=== PATIENT | male | born 1955 | race Caucasian/White ===

== ENCOUNTER 2017-03-13 10:57 | Inpatient (IN) | payer MEDICARE, MEDICAID ==
[~2017-03-13] VITALS: Ht 182.9 cm; Wt 85.2 kg
[~2017-03-13 10:57] MED LIST: APIX5TAB3 PO; ASCO500C15 PO; ASPI-41 PO; CHOL10008 PO; CILO100T PO; DOXY-200 PO; GABA-532 PO; LACT10SO6 PO; LEVO500T89 PO; MULT-1179 PO; OMEP20CA10 PO; PROP10TA10 PO; SPIR25TA3 PO; ZIN220C PO
[2017-03-13] MEDS ORDERED: normal saline 1000ML IV soln IVB ONE (11:35)
[2017-03-13] MEDS ORDERED: naloxone 2mg/2ml inj IV ONE (11:35)
[2017-03-13 12:08] LABS: BASOPHILS # (AUTO) 0.1 X10'3 (0-0.2); BASOPHILS % (AUTO) 0.3 % (0-1); EOSINOPHILS # (AUTO) 0.3 X10'3 (0-0.9); EOSINOPHILS % (AUTO) 1.6 % (0-6); HEMOGLOBIN 11.2 g/dl (14.0-17.9); LYMPHOCYTES # (AUTO) 1.3 X10'3 (1.1-4.8); LYMPHOCYTES % (AUTO) 7.9 % (21-51); MEAN CORPUSCULAR HEMOGLOBIN 30.2 PG (27.0-31.0); MEAN CORPUSCULAR HGB CONC 33.1 % (33.0-36.5); MEAN CORPUSCULAR VOLUME 91.2 FL (78-98); MEAN PLATELET VOLUME 8.3 FL (7.4-10.4); MONOCYTES # (AUTO) 1.2 X10'3 (0-0.9); MONOCYTES % (AUTO) 7.1 % (2-12); NEUTROPHILS # (AUTO) 14.2 X10'3 (1.8-7.7); NEUTROPHILS % (AUTO) 83.1 % (42-75); PLATELET COUNT 173 X10'3 (140-440); RED BLOOD COUNT 3.72 X10'6 (4.70-6.10); RED CELL DISTRIBUTION WIDTH 18.1 % (11.5-14.5)
[2017-03-13] MEDS ORDERED: vancomycin inj 1,000 MG in normal saline 250ml IV soln 250 ML IV STA (12:17)
[2017-03-13 12:19] LABS: INR 1.3 INR; PARTIAL THROMBOPLASTIN TIME 25 SECONDS (22-32); PROTHROMBIN TIME 13.6 SECONDS (9.0-12.0)
[2017-03-13] MEDS ORDERED: piperacillin/tazo 3.375gm/50ml 50 ML IV ONE (12:20)
[2017-03-13 12:23] LABS: GLUCOSE, URINE NEGATIVE (Neg); KETONES,URINE 15 mg/dl (Neg); LEUKOCYTE ESTERASE ,URINE MODERATE (Neg); NITRITES, URINE NEGATIVE (Neg); OCCULT BLOOD,URINE LARGE (Neg); PROTEIN,URINE 100 mg/dl (Neg); UROBILINOGEN,URINE >=8.0 E.U/dL (0.2-1.0)
[2017-03-13 12:24] LABS: UA COLLECTION TYPE FOLEY CATH
[2017-03-13 12:25] LABS: ALANINE AMINOTRANSFERASE 52 U/L (12-78); ALBUMIN 1.8 G/DL (3.4-5.0); ALBUMIN/GLOBULIN RATIO 0.4 (1.1-1.5); ALKALINE PHOSPHATASE 112 IU/L (46-116); ANION GAP 13 (8-16); ASPARTATE AMINO TRANSFERASE 79 U/L (10-37); BILIRUBIN,TOTAL 4.1 MG/DL (0.1-1.0); BLOOD UREA NITROGEN 34 MG/DL (7-18); BUN/CREATININE RATIO 21.1 (5.4-32.0); CALCIUM 8.5 MG/DL (8.5-10.1); CHLORIDE 118 MMOL/L (99-107); CREATININE 1.61 MG/DL (0.60-1.10); GLUCOSE 113 MG/DL (70-104); POTASSIUM 3.9 MMOL/L (3.5-5.1); SODIUM 152 MMOL/L (135-145); TOTAL CARBON DIOXIDE 20.6 MMOL/L (24-32); TOTAL PROTEIN 6.8 G/DL (6.4-8.2); eGFR 44 ML/MIN
[2017-03-13 12:25] LABS: CLARITY,URINE SLIGHTLY CLOUDY (Clear)
[2017-03-13] MEDS ORDERED: vancomycin/NS 1 GM ADD-VANTAGE 250 ML X 1 DOSE IV ONE (12:25)
[2017-03-13 12:28] LABS: COLOR,URINE DARK YELLOW (Yellow)
[2017-03-13 12:31] LABS: BACTERIA,URINE 1+ /HPF (Neg); MUCUS STRANDS NONE SEEN /LPF (Neg); SQUAMOUS EPITHELIAL CELL,UR NONE SEEN /LPF (FEW); WBC,URINE 30-50 /HPF (0-4)
[2017-03-13 12:32] LABS: ETHANOL < 0.010 GM/DL (0.0-0.010); TROPONIN I 0.11 NG/ML (0.0-0.05)
[2017-03-13 12:34] LABS: URINE AMPHETAMINE SCREEN NEGATIVE (Neg); URINE BARBITUATE SCREEN NEGATIVE (Neg); URINE BENZODIAZEPINES SCREEN NEGATIVE (Neg); URINE CANNABINOID SCREEN NEGATIVE (Neg); URINE COCAINE SCREEN NEGATIVE (Neg); URINE METHADONE SCREEN NEGATIVE (Neg); URINE OPIATE SCREEN NEGATIVE (Neg); URINE PHENCYCLIDINE SCREEN NEGATIVE (Neg)
[2017-03-13] MEDS ORDERED: normal saline 1000ML IV soln IV ONE (12:50)
[2017-03-13] MEDS ORDERED: lactulose 20gm/30ml cup PO ONE ×2 (13:15→15:30)
[2017-03-13] MEDS ORDERED: ondansetron/PF 4mg/2ml inj IV PRN (15:30)
[2017-03-13] MEDS ORDERED: acetaminophen 325mg tablet PO PRN (15:30)
[2017-03-13] MEDS ORDERED: normal saline 1000ml 1,000 ML IV SCH (15:30)
[2017-03-13] MEDS ORDERED: magnesium hydroxide 30ml (MOM) UD suspension PO PRN (15:30)
[2017-03-13] MEDS ORDERED: mag hydrox/Alum hydrox/simeth 30ml oral suspension PO PRN (15:30)
[2017-03-13 16:23] LABS: ALBUMIN 1.5 G/DL (3.4-5.0); ANION GAP 12 (8-16); BLOOD UREA NITROGEN 35 MG/DL (7-18); BUN/CREATININE RATIO 21.6 (5.4-32.0); CALCIUM 7.8 MG/DL (8.5-10.1); CHLORIDE 121 MMOL/L (99-107); CREATININE 1.62 MG/DL (0.60-1.10); GLUCOSE 113 MG/DL (70-104); POTASSIUM 3.6 MMOL/L (3.5-5.1); SODIUM 154 MMOL/L (135-145); TOTAL CARBON DIOXIDE 21.2 MMOL/L (24-32); eGFR 43 ML/MIN
[2017-03-13] MEDS ORDERED: potassium Cl 20 mEq SR tablet PO PRN ×2 (17:35)
[2017-03-13] MEDS ORDERED: potassium Cl 40MEQ/NS 500ml 500 ML IV PRN ×2 (17:35)
[2017-03-13 17:38] VITALS: BP 169/70
[2017-03-13] MEDS ORDERED: vancomycin/NS 1 GM ADD-VANTAGE 250 ML IV STA (17:53)
[2017-03-13 17:58] LABS: ALBUMIN 1.6 G/DL (3.4-5.0); ANION GAP 11 (8-16); BLOOD UREA NITROGEN 34 MG/DL (7-18); BUN/CREATININE RATIO 21.4 (5.4-32.0); CHLORIDE 121 MMOL/L (99-107); CREATININE 1.59 MG/DL (0.60-1.10); GLUCOSE 110 MG/DL (70-104); POTASSIUM 3.6 MMOL/L (3.5-5.1); SODIUM 154 MMOL/L (135-145); TOTAL CARBON DIOXIDE 21.7 MMOL/L (24-32); eGFR 44 ML/MIN
[2017-03-13 18:11] LABS: URINE AMPHETAMINE SCREEN NEGATIVE (Neg); URINE BARBITUATE SCREEN NEGATIVE (Neg); URINE BENZODIAZEPINES SCREEN NEGATIVE (Neg); URINE CANNABINOID SCREEN NEGATIVE (Neg); URINE COCAINE SCREEN NEGATIVE (Neg); URINE METHADONE SCREEN NEGATIVE (Neg); URINE OPIATE SCREEN NEGATIVE (Neg); URINE PHENCYCLIDINE SCREEN NEGATIVE (Neg)
[2017-03-13 18:15] LABS: CREATINE KINASE 637 U/L (39-308)
[2017-03-13 19:00] VITALS: BP 171/64
[2017-03-13] MEDS: potassium cl 20mEq in 1/2 NS 1,000 ML IV SCH (19:07)
[2017-03-13 19:25] LABS: HEMATOCRIT 32.1 % (42.0-52.0); HEMOGLOBIN 10.4 g/dl (14.0-17.9); MEAN CORPUSCULAR HEMOGLOBIN 29.7 PG (27.0-31.0); MEAN CORPUSCULAR HGB CONC 32.5 % (33.0-36.5); MEAN CORPUSCULAR VOLUME 91.4 FL (78-98); MEAN PLATELET VOLUME 8.9 FL (7.4-10.4); PLATELET COUNT 154 X10'3 (140-440); RED BLOOD COUNT 3.51 X10'6 (4.70-6.10); WHITE BLOOD COUNT 18.7 X10'3 (4.5-11.0)
[2017-03-13] MEDS: lactulose 20gm/30ml cup PO SCH (19:26)
[2017-03-13] MEDS: hydrALAZINE 20mg/ml inj. IV PRN (19:49)
[2017-03-13 20:27] LABS: ALBUMIN 1.6 G/DL (3.4-5.0); ANION GAP 13 (8-16); BLOOD UREA NITROGEN 36 MG/DL (7-18); CALCIUM 8.1 MG/DL (8.5-10.1); CHLORIDE 122 MMOL/L (99-107); CREATININE 1.64 MG/DL (0.60-1.10); GLUCOSE 118 MG/DL (70-104); MAGNESIUM 1.6 MG/DL (1.5-2.4); POTASSIUM 3.6 MMOL/L (3.5-5.1); SODIUM 153 MMOL/L (135-145); TOTAL CARBON DIOXIDE 17.9 MMOL/L (24-32); eGFR 43 ML/MIN
[2017-03-13] MEDS ORDERED: diltiazem 5mg/ml 5ml inj. IV ONE ×2 (21:00→22:20)
[2017-03-13] MEDS ORDERED: LORazepam 2 mg/ml vial IV PRN (21:00)
[2017-03-13] MEDS ORDERED: apixaban 5mg tablet PO ONE (21:00)
[2017-03-13] MEDS: heparin, porcine 5000 units/ml vial SQ SCH (21:27)
[2017-03-13] MEDS: piperacillin/tazo 3.375gm/50ml 50 ML IV SCH (21:28)
[2017-03-13] MEDS: rifaximin 550mg tablet PO SCH (21:28)
[2017-03-13 23:00] VITALS: BP 172/69
[2017-03-14] VITALS (19 sets, daily range): BP systolic 128–187; BP diastolic 51–77
[2017-03-14 00:27] LABS: ALBUMIN 1.6 G/DL (3.4-5.0); ANION GAP 13 (8-16); BLOOD UREA NITROGEN 37 MG/DL (7-18); BUN/CREATININE RATIO 20.6 (5.4-32.0); CHLORIDE 121 MMOL/L (99-107); GLUCOSE 121 MG/DL (70-104); POTASSIUM 3.7 MMOL/L (3.5-5.1); SODIUM 152 MMOL/L (135-145); TOTAL CARBON DIOXIDE 17.8 MMOL/L (24-32); eGFR 38 ML/MIN
[2017-03-14 01:01] LABS: MAGNESIUM 1.6 MG/DL (1.5-2.4)
[2017-03-14] MEDS ORDERED: diltiazem-D5W 125mg/125ml 125 ML IV ONE (01:09)
[2017-03-14] MEDS: diltiazem-D5W 125mg/125ml 125 ML IV SCH ×2 (01:20→20:35)
[2017-03-14] MEDS: piperacillin/tazo 3.375gm/50ml 50 ML IV SCH ×4 (02:06→20:35)
[2017-03-14] MEDS: lactulose 20gm/30ml cup PO SCH ×4 (02:06→20:34)
[2017-03-14] MEDS: potassium cl 20mEq in 1/2 NS 1,000 ML IV SCH ×4 (02:07→22:19)
[2017-03-14 02:13] LABS: BASOPHILS # (AUTO) 0.1 X10'3 (0-0.2); BASOPHILS % (AUTO) 0.3 % (0-1); EOSINOPHILS # (AUTO) 0.1 X10'3 (0-0.9); EOSINOPHILS % (AUTO) 0.3 % (0-6); HEMATOCRIT 29.2 % (42.0-52.0); HEMOGLOBIN 10.2 g/dl (14.0-17.9); LYMPHOCYTES # (AUTO) 1.7 X10'3 (1.1-4.8); LYMPHOCYTES % (AUTO) 8.6 % (21-51); MEAN CORPUSCULAR HEMOGLOBIN 31.5 PG (27.0-31.0); MEAN CORPUSCULAR HGB CONC 34.8 % (33.0-36.5); MEAN CORPUSCULAR VOLUME 90.4 FL (78-98); MEAN PLATELET VOLUME 8.6 FL (7.4-10.4); MONOCYTES # (AUTO) 1.6 X10'3 (0-0.9); NEUTROPHILS # (AUTO) 16.1 X10'3 (1.8-7.7); NEUTROPHILS % (AUTO) 82.8 % (42-75); PLATELET COUNT 143 X10'3 (140-440); RED BLOOD COUNT 3.23 X10'6 (4.70-6.10); RED CELL DISTRIBUTION WIDTH 16.7 % (11.5-14.5); WHITE BLOOD COUNT 19.6 X10'3 (4.5-11.0)
[2017-03-14] MEDS ORDERED: vancomycin inj 1,250 MG in normal saline 250ml IV soln 250 ML IV SCH (03:00)
[2017-03-14] MEDS: hydrALAZINE 20mg/ml inj. IV PRN (03:53)
[2017-03-14 04:35] LABS: PLATELET ESTIMATE NORMAL; TOTAL CELLS COUNTED 100
[2017-03-14 04:36] LABS: ANISOCYTOSIS 1+; ELLIPTOCYTES FEW; POIKILOCYTOSIS 2+; POLYCHROMASIA 1+
[2017-03-14 04:37] LABS: BURR CELLS 1+
[2017-03-14 04:38] LABS: SCHISTOCYTES 1+
[2017-03-14 06:07] LABS: BASOPHILS % (AUTO) 0.1 % (0-1); EOSINOPHILS # (AUTO) 0.1 X10'3 (0-0.9); EOSINOPHILS % (AUTO) 0.3 % (0-6); HEMATOCRIT 30.8 % (42.0-52.0); HEMOGLOBIN 10.1 g/dl (14.0-17.9); LYMPHOCYTES # (AUTO) 2.1 X10'3 (1.1-4.8); LYMPHOCYTES % (AUTO) 12.1 % (21-51); MEAN CORPUSCULAR HEMOGLOBIN 30.1 PG (27.0-31.0); MEAN CORPUSCULAR HGB CONC 32.9 % (33.0-36.5); MEAN CORPUSCULAR VOLUME 91.6 FL (78-98); MEAN PLATELET VOLUME 8.6 FL (7.4-10.4); MONOCYTES # (AUTO) 1.7 X10'3 (0-0.9); MONOCYTES % (AUTO) 9.9 % (2-12); NEUTROPHILS # (AUTO) 13.7 X10'3 (1.8-7.7); NEUTROPHILS % (AUTO) 77.6 % (42-75); PLATELET COUNT 157 X10'3 (140-440); RED BLOOD COUNT 3.36 X10'6 (4.70-6.10); RED CELL DISTRIBUTION WIDTH 17.9 % (11.5-14.5); WHITE BLOOD COUNT 17.6 X10'3 (4.5-11.0)
[2017-03-14 06:58] LABS: ALBUMIN 1.5 G/DL (3.4-5.0); ANION GAP 14 (8-16); BLOOD UREA NITROGEN 37 MG/DL (7-18); BUN/CREATININE RATIO 18.8 (5.4-32.0); CHLORIDE 121 MMOL/L (99-107); CREATININE 1.97 MG/DL (0.60-1.10); GLUCOSE 122 MG/DL (70-104); MAGNESIUM 1.7 MG/DL (1.5-2.4); POTASSIUM 3.5 MMOL/L (3.5-5.1); SODIUM 153 MMOL/L (135-145); TOTAL CARBON DIOXIDE 18.5 MMOL/L (24-32); eGFR 35 ML/MIN
[2017-03-14 07:29] LABS: ANISOCYTOSIS 2+; BURR CELLS 1+; ELLIPTOCYTES FEW; PLATELET ESTIMATE NORMAL; SCHISTOCYTES FEW
[2017-03-14] MEDS: heparin, porcine 5000 units/ml vial SQ SCH ×2 (08:25→20:34)
[2017-03-14] MEDS: rifaximin 550mg tablet PO SCH ×2 (08:26→20:34)
[2017-03-14] MEDS ORDERED: FLU VACC QS2017-18 36MOS UP/PF 60 MCG/0.5 ML SYRINGE IMVAC ONE (10:35)
[2017-03-14] MEDS ORDERED: pneumococcal 23-VAL P-sac vacc 25 mcg/0.5ml vial IMVAC ONE (10:35)
[2017-03-14 13:08] LABS: ALBUMIN 1.6 G/DL (3.4-5.0); ANION GAP 13 (8-16); BLOOD UREA NITROGEN 38 MG/DL (7-18); BUN/CREATININE RATIO 18.2 (5.4-32.0); CALCIUM 8.2 MG/DL (8.5-10.1); CHLORIDE 121 MMOL/L (99-107); CREATININE 2.09 MG/DL (0.60-1.10); GLUCOSE 136 MG/DL (70-104); MAGNESIUM 1.7 MG/DL (1.5-2.4); POTASSIUM 3.9 MMOL/L (3.5-5.1); SODIUM 152 MMOL/L (135-145); TOTAL CARBON DIOXIDE 18.2 MMOL/L (24-32); eGFR 32 ML/MIN
[2017-03-14 17:48] LABS: CREATININE,URINE RANDOM 124.9 MG/DL; TOTAL PROTEIN,URINE RANDOM 89.5 MG/DL
[2017-03-14 17:56] LABS: HEMATOCRIT 30.3 % (42.0-52.0); HEMOGLOBIN 9.8 g/dl (14.0-17.9); MEAN CORPUSCULAR HEMOGLOBIN 30.3 PG (27.0-31.0); MEAN CORPUSCULAR HGB CONC 32.5 % (33.0-36.5); MEAN CORPUSCULAR VOLUME 93.3 FL (78-98); MEAN PLATELET VOLUME 8.6 FL (7.4-10.4); PLATELET COUNT 137 X10'3 (140-440); RED BLOOD COUNT 3.25 X10'6 (4.70-6.10); RED CELL DISTRIBUTION WIDTH 19.1 % (11.5-14.5); WHITE BLOOD COUNT 16.8 X10'3 (4.5-11.0)
[2017-03-14] MEDS: lactobacillus rhamnosus 10,000 MMU CELLS/CAPSULE PO SCH (17:57)
[2017-03-14 18:05] LABS: UA COLLECTION TYPE FOLEY CATH
[2017-03-14 18:06] LABS: CLARITY,URINE CLOUDY (Clear); COLOR,URINE DARK YELLOW (Yellow); GLUCOSE, URINE NEGATIVE (Neg); KETONES,URINE TRACE mg/dl (Neg); PROTEIN,URINE 30 mg/dl (Neg)
[2017-03-14 18:07] LABS: LEUKOCYTE ESTERASE ,URINE MODERATE (Neg); NITRITES, URINE NEGATIVE (Neg); OCCULT BLOOD,URINE LARGE (Neg)
[2017-03-14 18:11] LABS: BACTERIA,URINE FEW /HPF (Neg); RBC,URINE TNTC /HPF (0-2); WBC,URINE TNTC /HPF (0-4)
[2017-03-14 18:12] LABS: HYALINE CASTS 0-3 /LPF (NEGATIVE); MUCUS STRANDS FEW /LPF (Neg); SQUAMOUS EPITHELIAL CELL,UR MODERATE /LPF (FEW)
[2017-03-14 18:13] LABS: WBC CLUMPS,URINE MODERATE /HPF (NEGATIVE)
[2017-03-14 19:12] LABS: ALANINE AMINOTRANSFERASE 46 U/L (12-78); ALBUMIN 1.5 G/DL (3.4-5.0); ALBUMIN/GLOBULIN RATIO 0.3 (1.1-1.5); ALKALINE PHOSPHATASE 93 IU/L (46-116); ANION GAP 14 (8-16); ASPARTATE AMINO TRANSFERASE 100 U/L (10-37); BILIRUBIN,TOTAL 3.7 MG/DL (0.1-1.0); BLOOD UREA NITROGEN 35 MG/DL (7-18); BUN/CREATININE RATIO 17.7 (5.4-32.0); CALCIUM 7.9 MG/DL (8.5-10.1); CHLORIDE 119 MMOL/L (99-107); CREATINE KINASE 1114 U/L (39-308); CREATININE 1.98 MG/DL (0.60-1.10); GLUCOSE 121 MG/DL (70-104); MAGNESIUM 1.6 MG/DL (1.5-2.4); POTASSIUM 3.4 MMOL/L (3.5-5.1); SODIUM 152 MMOL/L (135-145); TOTAL CARBON DIOXIDE 19.4 MMOL/L (24-32); TOTAL PROTEIN 6.2 G/DL (6.4-8.2); eGFR 34 ML/MIN
[2017-03-15] VITALS (12 sets, daily range): BP systolic 129–152; BP diastolic 42–70
[2017-03-15] MEDS: piperacillin/tazo 3.375gm/50ml 50 ML IV SCH ×4 (02:21→19:54)
[2017-03-15] MEDS: lactulose 20gm/30ml cup PO SCH ×6 (02:21→18:51)
[2017-03-15 06:36] LABS: BASOPHILS % (AUTO) 0.2 % (0-1); EOSINOPHILS # (AUTO) 0.4 X10'3 (0-0.9); EOSINOPHILS % (AUTO) 2.2 % (0-6); HEMATOCRIT 29.2 % (42.0-52.0); HEMOGLOBIN 9.5 g/dl (14.0-17.9); LYMPHOCYTES # (AUTO) 1.3 X10'3 (1.1-4.8); LYMPHOCYTES % (AUTO) 7.1 % (21-51); MEAN CORPUSCULAR HEMOGLOBIN 30.1 PG (27.0-31.0); MEAN CORPUSCULAR HGB CONC 32.7 % (33.0-36.5); MEAN CORPUSCULAR VOLUME 92.2 FL (78-98); MEAN PLATELET VOLUME 8.9 FL (7.4-10.4); MONOCYTES # (AUTO) 1.6 X10'3 (0-0.9); NEUTROPHILS # (AUTO) 14.6 X10'3 (1.8-7.7); NEUTROPHILS % (AUTO) 81.5 % (42-75); PLATELET COUNT 146 X10'3 (140-440); RED BLOOD COUNT 3.17 X10'6 (4.70-6.10); RED CELL DISTRIBUTION WIDTH 17.6 % (11.5-14.5); WHITE BLOOD COUNT 17.9 X10'3 (4.5-11.0)
[2017-03-15 06:51] LABS: ALANINE AMINOTRANSFERASE 50 U/L (12-78); ALBUMIN 1.5 G/DL (3.4-5.0); ALBUMIN/GLOBULIN RATIO 0.3 (1.1-1.5); ALKALINE PHOSPHATASE 94 IU/L (46-116); ANION GAP 9 (8-16); ASPARTATE AMINO TRANSFERASE 101 U/L (10-37); BILIRUBIN,TOTAL 3.4 MG/DL (0.1-1.0); BLOOD UREA NITROGEN 32 MG/DL (7-18); BUN/CREATININE RATIO 17.2 (5.4-32.0); CALCIUM 8.1 MG/DL (8.5-10.1); CHLORIDE 120 MMOL/L (99-107); CREATININE 1.86 MG/DL (0.60-1.10); GLUCOSE 128 MG/DL (70-104); MAGNESIUM 1.8 MG/DL (1.5-2.4); POTASSIUM 3.3 MMOL/L (3.5-5.1); SODIUM 150 MMOL/L (135-145); TOTAL CARBON DIOXIDE 21.2 MMOL/L (24-32); eGFR 37 ML/MIN
[2017-03-15] MEDS: heparin, porcine 5000 units/ml vial SQ SCH ×2 (08:28→20:00)
[2017-03-15] MEDS: lactobacillus rhamnosus 10,000 MMU CELLS/CAPSULE PO SCH ×2 (08:28→17:30)
[2017-03-15] MEDS: rifaximin 550mg tablet PO SCH ×2 (08:28→18:51)
[2017-03-15] MEDS: vancomycin inj 1,250 MG in normal saline 250ml IV soln 250 ML IV SCH (08:34)
[2017-03-15] MEDS: potassium cl 20mEq in 1/2 NS 1,000 ML IV SCH ×3 (08:35→17:30)
[2017-03-15 13:12] LABS: ALBUMIN 1.4 G/DL (3.4-5.0); ANION GAP 13 (8-16); BLOOD UREA NITROGEN 32 MG/DL (7-18); BUN/CREATININE RATIO 18.2 (5.4-32.0); CALCIUM 7.9 MG/DL (8.5-10.1); CHLORIDE 119 MMOL/L (99-107); CREATININE 1.76 MG/DL (0.60-1.10); GLUCOSE 153 MG/DL (70-104); MAGNESIUM 1.6 MG/DL (1.5-2.4); POTASSIUM 3.3 MMOL/L (3.5-5.1); SODIUM 152 MMOL/L (135-145); eGFR 39 ML/MIN
[2017-03-15] MEDS: apixaban 5mg tablet PO SCH (18:51)
[2017-03-15] MEDS: cilostazol 50mg tablet PO SCH (18:51)
[2017-03-15] MEDS ORDERED: lactulose 20gm/30ml cup PO SCH (20:00)
[2017-03-15] MEDS: zinc oxide ointment 30gm tube TP SCH (20:16)
[2017-03-15 20:43] LABS: HEMATOCRIT 29.6 % (42.0-52.0); HEMOGLOBIN 9.7 g/dl (14.0-17.9); MEAN CORPUSCULAR HEMOGLOBIN 30.2 PG (27.0-31.0); MEAN CORPUSCULAR HGB CONC 32.8 % (33.0-36.5); MEAN PLATELET VOLUME 9.2 FL (7.4-10.4); PLATELET COUNT 128 X10'3 (140-440); RED BLOOD COUNT 3.22 X10'6 (4.70-6.10); RED CELL DISTRIBUTION WIDTH 18.3 % (11.5-14.5)
[2017-03-15 20:45] LABS: ALBUMIN 1.3 G/DL (3.4-5.0); ANION GAP 11 (8-16); BLOOD UREA NITROGEN 31 MG/DL (7-18); BUN/CREATININE RATIO 18.1 (5.4-32.0); CALCIUM 8.1 MG/DL (8.5-10.1); CREATINE KINASE 515 U/L (39-308); CREATININE 1.71 MG/DL (0.60-1.10); GLUCOSE 116 MG/DL (70-104); MAGNESIUM 1.6 MG/DL (1.5-2.4); POTASSIUM 3.6 MMOL/L (3.5-5.1); SODIUM 151 MMOL/L (135-145); TOTAL CARBON DIOXIDE 20.5 MMOL/L (24-32); WHITE BLOOD COUNT 31.7 X10'3 (4.5-11.0); eGFR 41 ML/MIN
[2017-03-15 20:46] LABS: CHLORIDE 120 MMOL/L (99-107)
[2017-03-15] MEDS: diltiazem-D5W 125mg/125ml 125 ML IV SCH (23:45)
[2017-03-16] VITALS (7 sets, daily range): BP systolic 112–143; BP diastolic 47–61
[2017-03-16] MEDS: piperacillin/tazo 3.375gm/50ml 50 ML IV SCH ×4 (01:14→19:26)
[2017-03-16] MEDS: potassium cl 20mEq in 1/2 NS 1,000 ML IV SCH ×3 (05:40→19:28)
[2017-03-16 06:10] LABS: BASOPHILS # (AUTO) 0.1 X10'3 (0-0.2); BASOPHILS % (AUTO) 0.4 % (0-1); EOSINOPHILS # (AUTO) 0.1 X10'3 (0-0.9); EOSINOPHILS % (AUTO) 0.4 % (0-6); HEMATOCRIT 26.6 % (42.0-52.0); HEMOGLOBIN 8.7 g/dl (14.0-17.9); LYMPHOCYTES # (AUTO) 1.6 X10'3 (1.1-4.8); LYMPHOCYTES % (AUTO) 6.5 % (21-51); MEAN CORPUSCULAR HEMOGLOBIN 30.1 PG (27.0-31.0); MEAN CORPUSCULAR HGB CONC 32.9 % (33.0-36.5); MEAN CORPUSCULAR VOLUME 91.5 FL (78-98); MEAN PLATELET VOLUME 9.2 FL (7.4-10.4); MONOCYTES # (AUTO) 1.4 X10'3 (0-0.9); MONOCYTES % (AUTO) 5.7 % (2-12); NEUTROPHILS # (AUTO) 20.8 X10'3 (1.8-7.7); PLATELET COUNT 127 X10'3 (140-440); RED CELL DISTRIBUTION WIDTH 17.9 % (11.5-14.5); WHITE BLOOD COUNT 23.9 X10'3 (4.5-11.0)
[2017-03-16 06:43] LABS: ALANINE AMINOTRANSFERASE 46 U/L (12-78); ALBUMIN 1.3 G/DL (3.4-5.0); ALBUMIN/GLOBULIN RATIO 0.3 (1.1-1.5); ALKALINE PHOSPHATASE 85 IU/L (46-116); ANION GAP 8 (8-16); ASPARTATE AMINO TRANSFERASE 75 U/L (10-37); BILIRUBIN,TOTAL 2.9 MG/DL (0.1-1.0); BLOOD UREA NITROGEN 32 MG/DL (7-18); BUN/CREATININE RATIO 18.9 (5.4-32.0); CALCIUM 7.9 MG/DL (8.5-10.1); CHLORIDE 121 MMOL/L (99-107); CREATINE KINASE 359 U/L (39-308); CREATININE 1.69 MG/DL (0.60-1.10); GLUCOSE 104 MG/DL (70-104); MAGNESIUM 1.7 MG/DL (1.5-2.4); PHOSPHORUS 2.2 MG/DL (2.3-4.5); POTASSIUM 3.8 MMOL/L (3.5-5.1); PREALBUMIN 6.3 MG/DL (19-36); SODIUM 151 MMOL/L (135-145); TOTAL CARBON DIOXIDE 22.2 MMOL/L (24-32); TOTAL PROTEIN 5.6 G/DL (6.4-8.2); eGFR 41 ML/MIN
[2017-03-16] MEDS: lactulose 20gm/30ml cup PO SCH ×3 (08:00→19:26)
[2017-03-16] MEDS: cilostazol 50mg tablet PO SCH ×2 (08:00→19:27)
[2017-03-16 10:15] LABS: ABG BASE EXCESS -3.8 mmol/L (-2.0-3.0); ABG HCO3 18.2 mmol/L (22.0-26.0); ABG OXYGEN SATURATION 94.3 % (95-98); ABG PCO2 (T) 23.4 mmHg (35.0-48.0); ABG PH (T) 7.509 (7.350-7.450); ALLEN'S TEST Positive; FCOHb 0.5 % (0.5-1.5); FMetHb 0.1 % (0.3-1.12); FO2Hb 93.7 % (94-100); TOTAL HEMOGLOBIN 8.9 G/dl (14.0-18.0)
[2017-03-16] MEDS ORDERED: LORazepam 2 mg/ml vial IV PRN (10:20)
[2017-03-16] MEDS ORDERED: potassium phosphate inj 15 MMOL in normal saline 250ml IV soln 245 ML IV ONE (10:20)
[2017-03-16 10:55] LABS: ABG OXYGEN SATURATION 93.4 % (95-98); ABG PCO2 (T) 23.2 mmHg (35.0-48.0); ABG PH (T) 7.508 (7.350-7.450); ABG PO2 (T) 71.4 mmHg (83-108); ALLEN'S TEST Positive; FCOHb 0.7 % (0.5-1.5); FMetHb 0.1 % (0.3-1.12); FO2Hb 92.7 % (94-100); TOTAL HEMOGLOBIN 8.8 G/dl (14.0-18.0)
[2017-03-16] MEDS: rifaximin 550mg tablet PO SCH ×2 (11:44→19:27)
[2017-03-16] MEDS: vitamin D (cholecalciferol) 1,000 unit tablet PO SCH (11:44)
[2017-03-16] MEDS: propranolol 10mg tablet PO SCH (11:44)
[2017-03-16] MEDS: aspirin 325mg tablet, delayed-release (Ecotrin) PO SCH (11:45)
[2017-03-16] MEDS: gabapentin 300mg capsule PO SCH (11:45)
[2017-03-16] MEDS: ascorbic acid 500mg tablet PO SCH (11:45)
[2017-03-16] MEDS: apixaban 5mg tablet PO SCH ×2 (11:46→19:27)
[2017-03-16] MEDS: diltiazem CD 120mg capsule (once-daily) PO SCH (11:46)
[2017-03-16] MEDS: multivitamins, therapeutics tablet PO SCH (11:46)
[2017-03-16] MEDS: lactobacillus rhamnosus 10,000 MMU CELLS/CAPSULE PO SCH ×2 (11:46→16:42)
[2017-03-16] MEDS: zinc sulfate 220mg capsule PO SCH (11:46)
[2017-03-16] MEDS: pantoprazole 40mg Tablet.DR PO SCH (11:46)
[2017-03-16] MEDS: vancomycin inj 1,250 MG in normal saline 250ml IV soln 250 ML IV SCH (11:47)
[2017-03-16] MEDS: zinc oxide ointment 30gm tube TP SCH ×2 (11:48→19:27)
[2017-03-16] MEDS ORDERED: spironolactone 50 MG tablet PO SCH (20:00)
[2017-03-17 03:00] VITALS: BP 143/80
[2017-03-17] MEDS: lactulose 20gm/30ml cup PO SCH ×4 (03:03→19:22)
[2017-03-17] MEDS: piperacillin/tazo 3.375gm/50ml 50 ML IV SCH ×4 (03:03→19:28)
[2017-03-17 03:23] LABS: OCCULT BLOOD STOOL POSITIVE (Neg)
[2017-03-17 06:00] VITALS: BP 139/55
[2017-03-17] MEDS ORDERED: VANCOMYCIN LEVEL IV NR (07:30)
[2017-03-17] MEDS: aspirin 325mg tablet, delayed-release (Ecotrin) PO SCH (08:00)
[2017-03-17] MEDS: apixaban 5mg tablet PO SCH (08:00)
[2017-03-17] MEDS: furosemide 20MG tablet PO SCH (08:28)
[2017-03-17] MEDS: multivitamins, therapeutics tablet PO SCH (08:28)
[2017-03-17] MEDS: rifaximin 550mg tablet PO SCH ×2 (08:28→19:46)
[2017-03-17] MEDS: ascorbic acid 500mg tablet PO SCH (08:28)
[2017-03-17] MEDS: gabapentin 300mg capsule PO SCH (08:28)
[2017-03-17] MEDS: diltiazem CD 120mg capsule (once-daily) PO SCH (08:28)
[2017-03-17] MEDS: propranolol 10mg tablet PO SCH (08:28)
[2017-03-17] MEDS: vitamin D (cholecalciferol) 1,000 unit tablet PO SCH (08:29)
[2017-03-17] MEDS: lactobacillus rhamnosus 10,000 MMU CELLS/CAPSULE PO SCH ×2 (08:29→17:05)
[2017-03-17 08:49] LABS: BASOPHILS % (AUTO) 0.3 % (0-1); EOSINOPHILS # (AUTO) 0.9 X10'3 (0-0.9); EOSINOPHILS % (AUTO) 5.1 % (0-6); HEMATOCRIT 27.8 % (42.0-52.0); LYMPHOCYTES # (AUTO) 1.4 X10'3 (1.1-4.8); LYMPHOCYTES % (AUTO) 8.1 % (21-51); MEAN CORPUSCULAR HEMOGLOBIN 29.8 PG (27.0-31.0); MEAN CORPUSCULAR HGB CONC 32.5 % (33.0-36.5); MEAN CORPUSCULAR VOLUME 91.9 FL (78-98); MEAN PLATELET VOLUME 9.3 FL (7.4-10.4); MONOCYTES # (AUTO) 1.2 X10'3 (0-0.9); MONOCYTES % (AUTO) 6.9 % (2-12); NEUTROPHILS % (AUTO) 79.6 % (42-75); PLATELET COUNT 147 X10'3 (140-440); RED BLOOD COUNT 3.03 X10'6 (4.70-6.10); RED CELL DISTRIBUTION WIDTH 18.3 % (11.5-14.5); WHITE BLOOD COUNT 17.6 X10'3 (4.5-11.0)
[2017-03-17] MEDS: zinc sulfate 220mg capsule PO SCH (08:54)
[2017-03-17] MEDS: pantoprazole 40mg Tablet.DR PO SCH (08:54)
[2017-03-17] MEDS: cilostazol 50mg tablet PO SCH ×2 (08:54→19:23)
[2017-03-17 09:11] LABS: ALANINE AMINOTRANSFERASE 48 U/L (12-78); ALBUMIN 1.2 G/DL (3.4-5.0); ALBUMIN/GLOBULIN RATIO 0.3 (1.1-1.5); ALKALINE PHOSPHATASE 88 IU/L (46-116); ANION GAP 9 (8-16); ASPARTATE AMINO TRANSFERASE 58 U/L (10-37); BILIRUBIN,TOTAL 2.4 MG/DL (0.1-1.0); BLOOD UREA NITROGEN 30 MG/DL (7-18); BUN/CREATININE RATIO 19.7 (5.4-32.0); CALCIUM 8.1 MG/DL (8.5-10.1); CHLORIDE 123 MMOL/L (99-107); CREATINE KINASE 222 U/L (39-308); CREATININE 1.52 MG/DL (0.60-1.10); GLUCOSE 92 MG/DL (70-104); MAGNESIUM 1.8 MG/DL (1.5-2.4); PHOSPHORUS 2.7 MG/DL (2.3-4.5); POTASSIUM 3.9 MMOL/L (3.5-5.1); SODIUM 153 MMOL/L (135-145); TOTAL CARBON DIOXIDE 21.3 MMOL/L (24-32); TOTAL PROTEIN 5.6 G/DL (6.4-8.2); eGFR 47 ML/MIN
[2017-03-17] MEDS: vancomycin inj 1,250 MG in normal saline 250ml IV soln 250 ML IV SCH (10:10)
[2017-03-17 11:00] VITALS: BP 112/61
[2017-03-17] MEDS: potassium cl 20mEq in 1/2 NS 1,000 ML IV SCH ×2 (11:30→19:46)
[2017-03-17] MEDS: zinc oxide ointment 30gm tube TP SCH ×2 (11:49→19:46)
[2017-03-17 15:00] VITALS: BP 126/50
[2017-03-17] MEDS ORDERED: heparin 10,000 units/1 ML INJ IV PRN (15:50)
[2017-03-17] MEDS ORDERED: heparin 10,000 units/1 ML INJ IV SCH (16:40)
[2017-03-17 17:01] LABS: PARTIAL THROMBOPLASTIN TIME 26 SECONDS (22-32)
[2017-03-17 19:00] VITALS: BP 132/68
[2017-03-17 23:00] VITALS: BP 119/50
[2017-03-18] VITALS (11 sets, daily range): BP systolic 90–135; BP diastolic 43–75
[2017-03-18] MEDS ORDERED: heparin 10,000 units/1 ML INJ IV PRN (00:15)
[2017-03-18] MEDS: piperacillin/tazo 3.375gm/50ml 50 ML IV SCH ×3 (02:03→16:04)
[2017-03-18] MEDS: lactulose 20gm/30ml cup PO SCH ×4 (02:03→20:30)
[2017-03-18] MEDS: potassium cl 20mEq in 1/2 NS 1,000 ML IV SCH ×2 (05:14→14:24)
[2017-03-18 07:49] LABS: BASOPHILS % (AUTO) 0 % (0-1); EOSINOPHILS # (AUTO) 0.5 X10'3 (0-0.9); EOSINOPHILS % (AUTO) 2.6 % (0-6); HEMATOCRIT 26.6 % (42.0-52.0); HEMOGLOBIN 8.7 g/dl (14.0-17.9); LYMPHOCYTES # (AUTO) 1.5 X10'3 (1.1-4.8); LYMPHOCYTES % (AUTO) 7.5 % (21-51); MEAN CORPUSCULAR HEMOGLOBIN 30.1 PG (27.0-31.0); MEAN CORPUSCULAR HGB CONC 32.7 % (33.0-36.5); MEAN CORPUSCULAR VOLUME 92.1 FL (78-98); MEAN PLATELET VOLUME 8.9 FL (7.4-10.4); MONOCYTES # (AUTO) 1.4 X10'3 (0-0.9); MONOCYTES % (AUTO) 6.7 % (2-12); NEUTROPHILS # (AUTO) 16.9 X10'3 (1.8-7.7); NEUTROPHILS % (AUTO) 83.2 % (42-75); PLATELET COUNT 178 X10'3 (140-440); RED BLOOD COUNT 2.89 X10'6 (4.70-6.10); RED CELL DISTRIBUTION WIDTH 18.4 % (11.5-14.5); WHITE BLOOD COUNT 20.3 X10'3 (4.5-11.0)
[2017-03-18] MEDS: diltiazem CD 120mg capsule (once-daily) PO SCH (07:51)
[2017-03-18] MEDS: lactobacillus rhamnosus 10,000 MMU CELLS/CAPSULE PO SCH ×2 (07:51→16:46)
[2017-03-18] MEDS: cilostazol 50mg tablet PO SCH ×2 (07:51→20:31)
[2017-03-18] MEDS: rifaximin 550mg tablet PO SCH ×2 (07:51→20:30)
[2017-03-18] MEDS: vitamin D (cholecalciferol) 1,000 unit tablet PO SCH (07:51)
[2017-03-18] MEDS: gabapentin 300mg capsule PO SCH (07:51)
[2017-03-18] MEDS: multivitamins, therapeutics tablet PO SCH (07:52)
[2017-03-18] MEDS: furosemide 20MG tablet PO SCH (07:52)
[2017-03-18] MEDS: propranolol 10mg tablet PO SCH (07:52)
[2017-03-18] MEDS: vancomycin inj 1,250 MG in normal saline 250ml IV soln 250 ML IV SCH (08:00)
[2017-03-18 08:01] LABS: ALANINE AMINOTRANSFERASE 38 U/L (12-78); ALBUMIN 1.1 G/DL (3.4-5.0); ALBUMIN/GLOBULIN RATIO 0.3 (1.1-1.5); ALKALINE PHOSPHATASE 94 IU/L (46-116); ANION GAP 10 (8-16); ASPARTATE AMINO TRANSFERASE 48 U/L (10-37); BILIRUBIN,TOTAL 1.7 MG/DL (0.1-1.0); BLOOD UREA NITROGEN 29 MG/DL (7-18); BUN/CREATININE RATIO 16.2 (5.4-32.0); CALCIUM 7.7 MG/DL (8.5-10.1); CHLORIDE 120 MMOL/L (99-107); CREATININE 1.79 MG/DL (0.60-1.10); GLUCOSE 123 MG/DL (70-104); MAGNESIUM 1.5 MG/DL (1.5-2.4); PHOSPHORUS 2.8 MG/DL (2.3-4.5); POTASSIUM 3.2 MMOL/L (3.5-5.1); SODIUM 150 MMOL/L (135-145); TOTAL CARBON DIOXIDE 19.8 MMOL/L (24-32); TOTAL PROTEIN 5.2 G/DL (6.4-8.2); eGFR 39 ML/MIN
[2017-03-18] MEDS: pantoprazole 40mg Tablet.DR PO SCH (08:11)
[2017-03-18] MEDS: ascorbic acid 500mg tablet PO SCH (08:11)
[2017-03-18] MEDS: zinc sulfate 220mg capsule PO SCH (08:11)
[2017-03-18] MEDS: zinc oxide ointment 30gm tube TP SCH ×2 (08:11→20:00)
[2017-03-18] MEDS ORDERED: potassium Cl 20 mEq SR tablet PO PRN ×2 (14:55)
[2017-03-18] MEDS ORDERED: magnesium 4gm in 100ml NS 100 ML IV PRN (14:55)
[2017-03-18] MEDS ORDERED: potassium Cl 40MEQ/NS 500ml 500 ML IV PRN ×2 (14:55)
[2017-03-18] MEDS ORDERED: magnesium Cl slow-release 64mg tablet PO PRN (14:55)
[2017-03-18] MEDS ORDERED: magnesium 2GM in 50ml NS 50 ML IV PRN (14:55)
[2017-03-18] MEDS ORDERED: pantoprazole 40mg Tablet.DR PO SCH (20:00)
[2017-03-18] MEDS: pantoprazole 40MG/NS 100ML BAG 100 ML IV SCH (23:06)
[2017-03-18 23:18] LABS: BASOPHILS % (AUTO) 0 % (0-1); EOSINOPHILS # (AUTO) 0.1 X10'3 (0-0.9); EOSINOPHILS % (AUTO) 0.2 % (0-6); LYMPHOCYTES # (AUTO) 1.8 X10'3 (1.1-4.8); LYMPHOCYTES % (AUTO) 6.3 % (21-51); MEAN CORPUSCULAR HEMOGLOBIN 30.2 PG (27.0-31.0); MEAN CORPUSCULAR VOLUME 91.7 FL (78-98); MEAN PLATELET VOLUME 9.7 FL (7.4-10.4); MONOCYTES # (AUTO) 1.2 X10'3 (0-0.9); MONOCYTES % (AUTO) 4.3 % (2-12); NEUTROPHILS # (AUTO) 25.8 X10'3 (1.8-7.7); NEUTROPHILS % (AUTO) 89.2 % (42-75); PLATELET COUNT 158 X10'3 (140-440); RED BLOOD COUNT 2.09 X10'6 (4.70-6.10); RED CELL DISTRIBUTION WIDTH 18.9 % (11.5-14.5)
[2017-03-18 23:22] LABS: HEMOGLOBIN 6.3 g/dl (14.0-17.9); WHITE BLOOD COUNT 28.9 X10'3 (4.5-11.0)
[2017-03-18 23:23] LABS: HEMATOCRIT 19.1 % (42.0-52.0)
[2017-03-18 23:35] LABS: INR 1.8 INR; PROTHROMBIN TIME 17.9 SECONDS (9.0-12.0)
[2017-03-18 23:39] LABS: OCCULT BLOOD STOOL POSITIVE (Neg)
[2017-03-18 23:45] LABS: ANISOCYTOSIS 2+; NUCLEATED RED BLOOD CELLS 1 /100WBC (0-0); PLATELET ESTIMATE NORMAL; POLYCHROMASIA FEW; TOTAL CELLS COUNTED 100
[2017-03-18] MEDS ORDERED: piperacillin/tazo 3.375gm/50ml 50 ML IV SCH (23:55)
[2017-03-19] VITALS (36 sets, daily range): BP systolic 91–128; BP diastolic 37–82
[2017-03-19] MEDS: piperacillin/tazo 3.375gm/50ml 50 ML IV SCH ×4 (00:29→23:55)
[2017-03-19] MEDS: potassium cl 20mEq in 1/2 NS 1,000 ML IV SCH (00:29)
[2017-03-19] MEDS: pantoprazole 40MG/NS 100ML BAG 100 ML IV SCH ×5 (00:29→21:00)
[2017-03-19] MEDS: lactulose 20gm/30ml cup PO SCH ×4 (01:36→20:28)
[2017-03-19] MEDS ORDERED: normal saline 1000ml 1,000 ML IV SCH (07:25)
[2017-03-19] MEDS ORDERED: simethicone 40mg/0.6ml oral drops 30ml MC ONE (07:25)
[2017-03-19] MEDS ORDERED: LIDOcaine Viscous 15ml cup PO ONE (07:25)
[2017-03-19] MEDS ORDERED: fentaNYL/PF 50MCG/1 ML 2ML syringe IV PRN (07:25)
[2017-03-19] MEDS ORDERED: MIDAZolam 5mg/5ml vial IV PRN (07:25)
[2017-03-19] MEDS: zinc oxide ointment 30gm tube TP SCH ×2 (08:00→20:28)
[2017-03-19] MEDS: zinc sulfate 220mg capsule PO SCH (08:00)
[2017-03-19] MEDS: rifaximin 550mg tablet PO SCH ×2 (08:00→20:28)
[2017-03-19] MEDS ORDERED: MIDAZolam 1mg/ml 10ml vial ONE (08:28)
[2017-03-19] MEDS ORDERED: fentaNYL/PF 50MCG/1 ML 2ML syringe ONE (08:28)
[2017-03-19] MEDS ORDERED: LIDOcaine Viscous 15ml cup ONE (08:28)
[2017-03-19] MEDS ORDERED: furosemide 40mg/4ml inj IV STA (09:59)
[2017-03-19] MEDS: furosemide 20MG tablet PO SCH (10:10)
[2017-03-19] MEDS: lactobacillus rhamnosus 10,000 MMU CELLS/CAPSULE PO SCH ×2 (10:10→17:22)
[2017-03-19] MEDS: ascorbic acid 500mg tablet PO SCH (10:11)
[2017-03-19] MEDS: cilostazol 50mg tablet PO SCH ×2 (10:11→20:28)
[2017-03-19] MEDS: vitamin D (cholecalciferol) 1,000 unit tablet PO SCH (10:11)
[2017-03-19] MEDS: gabapentin 300mg capsule PO SCH (10:11)
[2017-03-19] MEDS: propranolol 10mg tablet PO SCH (10:12)
[2017-03-19] MEDS: diltiazem CD 120mg capsule (once-daily) PO SCH (10:12)
[2017-03-19] MEDS: multivitamins, therapeutics tablet PO SCH (10:12)
[2017-03-19 10:18] LABS: BASOPHILS % (AUTO) 0.2 % (0-1); EOSINOPHILS % (AUTO) 0.1 % (0-6); HEMATOCRIT 22.1 % (42.0-52.0); HEMOGLOBIN 7.4 g/dl (14.0-17.9); LYMPHOCYTES # (AUTO) 1.6 X10'3 (1.1-4.8); LYMPHOCYTES % (AUTO) 6.7 % (21-51); MEAN CORPUSCULAR HEMOGLOBIN 31.6 PG (27.0-31.0); MEAN CORPUSCULAR HGB CONC 33.8 % (33.0-36.5); MEAN CORPUSCULAR VOLUME 93.7 FL (78-98); MEAN PLATELET VOLUME 9.6 FL (7.4-10.4); MONOCYTES # (AUTO) 1.2 X10'3 (0-0.9); MONOCYTES % (AUTO) 5.2 % (2-12); NEUTROPHILS # (AUTO) 20.4 X10'3 (1.8-7.7); NEUTROPHILS % (AUTO) 87.8 % (42-75); PLATELET COUNT 122 X10'3 (140-440); RED BLOOD COUNT 2.35 X10'6 (4.70-6.10); RED CELL DISTRIBUTION WIDTH 18.9 % (11.5-14.5); WHITE BLOOD COUNT 23.2 X10'3 (4.5-11.0)
[2017-03-19 10:32] LABS: ALANINE AMINOTRANSFERASE 45 U/L (12-78); ALBUMIN 1.3 G/DL (3.4-5.0); ALBUMIN/GLOBULIN RATIO 0.4 (1.1-1.5); ALKALINE PHOSPHATASE 91 IU/L (46-116); ANION GAP 9 (8-16); ASPARTATE AMINO TRANSFERASE 64 U/L (10-37); BILIRUBIN,TOTAL 2.4 MG/DL (0.1-1.0); BLOOD UREA NITROGEN 41 MG/DL (7-18); CALCIUM 7.7 MG/DL (8.5-10.1); CHLORIDE 121 MMOL/L (99-107); CREATININE 2.16 MG/DL (0.60-1.10); GLUCOSE 105 MG/DL (70-104); MAGNESIUM 1.5 MG/DL (1.5-2.4); PHOSPHORUS 3.2 MG/DL (2.3-4.5); POTASSIUM 3.4 MMOL/L (3.5-5.1); SODIUM 150 MMOL/L (135-145); TOTAL CARBON DIOXIDE 19.7 MMOL/L (24-32); TOTAL PROTEIN 4.9 G/DL (6.4-8.2); eGFR 31 ML/MIN
[2017-03-19] MEDS: vancomycin inj 1,250 MG in normal saline 250ml IV soln 250 ML IV SCH (11:33)
[2017-03-19] MEDS ORDERED: diphenhydrAMINE 25mg capsule PO ONE (12:15)
[2017-03-19] MEDS ORDERED: acetaminophen 325mg tablet PO ONE (12:15)
[2017-03-19] MEDS: Potassium Cl inj 20 MEQ in dextrose 5%-water 990 ML IV SCH ×2 (12:30→21:54)
[2017-03-19] MEDS ORDERED: furosemide 40mg/4ml inj IV ONE (14:15)
[2017-03-19 16:27] LABS: CLARITY,URINE Clear (Clear); COLOR,URINE Yellow (Yellow); GLUCOSE, URINE Negative (Neg); KETONES,URINE Negative (Neg); LEUKOCYTE ESTERASE ,URINE Trace (Neg); NITRITES, URINE Negative (Neg); OCCULT BLOOD,URINE Trace (Neg); PROTEIN,URINE Negative (Neg); UROBILINOGEN,URINE 0.2 E.U/dL (0.2-1.0)
[2017-03-19 16:39] LABS: UA COLLECTION TYPE NON-SPECIFIED
[2017-03-19 16:40] LABS: BACTERIA,URINE NONE SEEN /HPF (Neg); HYALINE CASTS 0-3 /LPF (NEGATIVE); MUCUS STRANDS FEW /LPF (Neg); RBC,URINE 0-2 /HPF (0-2); SQUAMOUS EPITHELIAL CELL,UR NONE SEEN /LPF (FEW); WBC,URINE 0-4 /HPF (0-4)
[2017-03-19] MEDS ORDERED: furosemide 20 MG/2 ML vial IV ONE (16:40)
[2017-03-19 17:07] LABS: CREATININE,URINE RANDOM 19.7 MG/DL
[2017-03-19 17:47] LABS: BASOPHILS % (AUTO) 0 % (0-1); EOSINOPHILS # (AUTO) 0.3 X10'3 (0-0.9); EOSINOPHILS % (AUTO) 1.5 % (0-6); HEMOGLOBIN 7.4 g/dl (14.0-17.9); LYMPHOCYTES # (AUTO) 1.4 X10'3 (1.1-4.8); LYMPHOCYTES % (AUTO) 7.3 % (21-51); MEAN CORPUSCULAR HEMOGLOBIN 31.8 PG (27.0-31.0); MEAN CORPUSCULAR HGB CONC 33.9 % (33.0-36.5); MEAN CORPUSCULAR VOLUME 93.6 FL (78-98); MEAN PLATELET VOLUME 9.6 FL (7.4-10.4); MONOCYTES # (AUTO) 1.1 X10'3 (0-0.9); MONOCYTES % (AUTO) 5.5 % (2-12); NEUTROPHILS # (AUTO) 16.4 X10'3 (1.8-7.7); NEUTROPHILS % (AUTO) 85.7 % (42-75); PLATELET COUNT 127 X10'3 (140-440); RED BLOOD COUNT 2.31 X10'6 (4.70-6.10); RED CELL DISTRIBUTION WIDTH 18.7 % (11.5-14.5); WHITE BLOOD COUNT 19.1 X10'3 (4.5-11.0)
[2017-03-19 17:49] LABS: HEMATOCRIT 21.7 % (42.0-52.0)
[2017-03-20] MEDS: pantoprazole 40MG/NS 100ML BAG 100 ML IV SCH ×5 (01:00→20:38)
[2017-03-20] MEDS: lactulose 20gm/30ml cup PO SCH ×4 (01:36→19:34)
[2017-03-20 03:00] VITALS: BP 97/62
[2017-03-20 05:32] LABS: BASOPHILS % (AUTO) 0 % (0-1); EOSINOPHILS # (AUTO) 0.7 X10'3 (0-0.9); EOSINOPHILS % (AUTO) 4.7 % (0-6); HEMATOCRIT 23.9 % (42.0-52.0); HEMOGLOBIN 8.2 g/dl (14.0-17.9); LYMPHOCYTES # (AUTO) 1.1 X10'3 (1.1-4.8); LYMPHOCYTES % (AUTO) 7.1 % (21-51); MEAN CORPUSCULAR HEMOGLOBIN 31.9 PG (27.0-31.0); MEAN CORPUSCULAR HGB CONC 34.3 % (33.0-36.5); MEAN CORPUSCULAR VOLUME 92.9 FL (78-98); MEAN PLATELET VOLUME 9.5 FL (7.4-10.4); MONOCYTES # (AUTO) 0.9 X10'3 (0-0.9); MONOCYTES % (AUTO) 6.1 % (2-12); NEUTROPHILS # (AUTO) 12.7 X10'3 (1.8-7.7); NEUTROPHILS % (AUTO) 82.1 % (42-75); PLATELET COUNT 121 X10'3 (140-440); RED BLOOD COUNT 2.57 X10'6 (4.70-6.10); RED CELL DISTRIBUTION WIDTH 18.9 % (11.5-14.5); WHITE BLOOD COUNT 15.4 X10'3 (4.5-11.0)
[2017-03-20 06:00] VITALS: BP 130/58
[2017-03-20] MEDS: ascorbic acid 500mg tablet PO SCH (07:43)
[2017-03-20] MEDS: gabapentin 300mg capsule PO SCH (07:43)
[2017-03-20] MEDS: vitamin D (cholecalciferol) 1,000 unit tablet PO SCH (07:44)
[2017-03-20] MEDS: furosemide 20MG tablet PO SCH (07:44)
[2017-03-20] MEDS: zinc sulfate 220mg capsule PO SCH (07:46)
[2017-03-20] MEDS: diltiazem CD 120mg capsule (once-daily) PO SCH (07:46)
[2017-03-20] MEDS: lactobacillus rhamnosus 10,000 MMU CELLS/CAPSULE PO SCH ×2 (07:47→17:17)
[2017-03-20] MEDS: multivitamins, therapeutics tablet PO SCH (07:47)
[2017-03-20] MEDS: propranolol 10mg tablet PO SCH (07:47)
[2017-03-20] MEDS: rifaximin 550mg tablet PO SCH ×2 (07:48→19:34)
[2017-03-20] MEDS: Potassium Cl inj 20 MEQ in dextrose 5%-water 990 ML IV SCH ×2 (07:50→19:10)
[2017-03-20 07:57] LABS: BASOPHILS % (AUTO) 0.2 % (0-1); EOSINOPHILS # (AUTO) 0.8 X10'3 (0-0.9); HEMATOCRIT 25.1 % (42.0-52.0); HEMOGLOBIN 8.6 g/dl (14.0-17.9); LYMPHOCYTES % (AUTO) 6.4 % (21-51); MEAN CORPUSCULAR HEMOGLOBIN 31.8 PG (27.0-31.0); MEAN CORPUSCULAR VOLUME 93.6 FL (78-98); MEAN PLATELET VOLUME 9.7 FL (7.4-10.4); MONOCYTES # (AUTO) 0.8 X10'3 (0-0.9); NEUTROPHILS # (AUTO) 13.1 X10'3 (1.8-7.7); NEUTROPHILS % (AUTO) 83.4 % (42-75); PLATELET COUNT 121 X10'3 (140-440); RED BLOOD COUNT 2.68 X10'6 (4.70-6.10); RED CELL DISTRIBUTION WIDTH 18.6 % (11.5-14.5); WHITE BLOOD COUNT 15.7 X10'3 (4.5-11.0)
[2017-03-20 08:33] LABS: ALANINE AMINOTRANSFERASE 52 U/L (12-78); ALBUMIN 1.3 G/DL (3.4-5.0); ALBUMIN/GLOBULIN RATIO 0.3 (1.1-1.5); ALKALINE PHOSPHATASE 93 IU/L (46-116); ANION GAP 10 (8-16); ASPARTATE AMINO TRANSFERASE 81 U/L (10-37); BILIRUBIN,TOTAL 2.1 MG/DL (0.1-1.0); BLOOD UREA NITROGEN 37 MG/DL (7-18); BUN/CREATININE RATIO 16.1 (5.4-32.0); CALCIUM 7.7 MG/DL (8.5-10.1); CHLORIDE 117 MMOL/L (99-107); GLUCOSE 101 MG/DL (70-104); MAGNESIUM 1.4 MG/DL (1.5-2.4); SODIUM 147 MMOL/L (135-145); TOTAL CARBON DIOXIDE 20.1 MMOL/L (24-32); TOTAL PROTEIN 5.3 G/DL (6.4-8.2); eGFR 29 ML/MIN
[2017-03-20 08:38] LABS: POTASSIUM 2.6 MMOL/L (3.5-5.1)
[2017-03-20] MEDS ORDERED: potassium Cl 20 mEq SR tablet PO STA ×3 (08:59→18:30)
[2017-03-20] MEDS: piperacillin/tazo 3.375gm/50ml 50 ML IV SCH ×2 (09:07→15:56)
[2017-03-20] MEDS: vancomycin inj 1,250 MG in dextrose 5%-water 250 ML IV SCH (09:30)
[2017-03-20] MEDS: cilostazol 50mg tablet PO SCH ×2 (09:41→19:34)
[2017-03-20 11:00] VITALS: BP 99/60
[2017-03-20] MEDS: zinc oxide ointment 30gm tube TP SCH ×2 (15:38→20:39)
[2017-03-20 16:00] VITALS: BP 133/62
[2017-03-20] MEDS ORDERED: potassium Cl 20 mEq/100mL bag IV ONE (18:30)
[2017-03-20 19:00] VITALS: BP 125/74
[2017-03-20 22:24] LABS: ALBUMIN 1.2 G/DL (3.4-5.0); ANION GAP 11 (8-16); BLOOD UREA NITROGEN 29 MG/DL (7-18); BUN/CREATININE RATIO 12.9 (5.4-32.0); CALCIUM 7.4 MG/DL (8.5-10.1); CHLORIDE 112 MMOL/L (99-107); CREATININE 2.24 MG/DL (0.60-1.10); GLUCOSE 121 MG/DL (70-104); POTASSIUM 3.2 MMOL/L (3.5-5.1); SODIUM 142 MMOL/L (135-145); TOTAL CARBON DIOXIDE 19.5 MMOL/L (24-32); eGFR 30 ML/MIN
[2017-03-20 23:00] VITALS: BP 124/92
[2017-03-21] VITALS (16 sets, daily range): BP systolic 105–144; BP diastolic 53–67
[2017-03-21] MEDS: piperacillin/tazo 3.375gm/50ml 50 ML IV SCH ×4 (00:31→23:46)
[2017-03-21] MEDS: lactulose 20gm/30ml cup PO SCH ×4 (02:02→20:16)
[2017-03-21] MEDS: pantoprazole 40MG/NS 100ML BAG 100 ML IV SCH ×5 (02:02→20:16)
[2017-03-21] MEDS: Potassium Cl inj 20 MEQ in dextrose 5%-water 990 ML IV SCH ×2 (04:30→08:05)
[2017-03-21 06:01] LABS: ALANINE AMINOTRANSFERASE 47 U/L (12-78); ALBUMIN 1.1 G/DL (3.4-5.0); ALBUMIN/GLOBULIN RATIO 0.3 (1.1-1.5); ALKALINE PHOSPHATASE 94 IU/L (46-116); ANION GAP 9 (8-16); ASPARTATE AMINO TRANSFERASE 56 U/L (10-37); BILIRUBIN,TOTAL 1.7 MG/DL (0.1-1.0); BLOOD UREA NITROGEN 27 MG/DL (7-18); BUN/CREATININE RATIO 12.1 (5.4-32.0); CALCIUM 7.4 MG/DL (8.5-10.1); CHLORIDE 113 MMOL/L (99-107); CREATININE 2.24 MG/DL (0.60-1.10); GLUCOSE 111 MG/DL (70-104); MAGNESIUM 1.1 MG/DL (1.5-2.4); PHOSPHORUS 2.6 MG/DL (2.3-4.5); SODIUM 143 MMOL/L (135-145); TOTAL CARBON DIOXIDE 20.9 MMOL/L (24-32); TOTAL PROTEIN 4.8 G/DL (6.4-8.2); eGFR 30 ML/MIN
[2017-03-21 06:17] LABS: BASOPHILS % (AUTO) 0.3 % (0-1); EOSINOPHILS # (AUTO) 0.6 X10'3 (0-0.9); EOSINOPHILS % (AUTO) 4.6 % (0-6); HEMATOCRIT 23.6 % (42.0-52.0); HEMOGLOBIN 7.9 g/dl (14.0-17.9); LYMPHOCYTES # (AUTO) 1.5 X10'3 (1.1-4.8); MEAN CORPUSCULAR HEMOGLOBIN 30.3 PG (27.0-31.0); MEAN CORPUSCULAR HGB CONC 33.3 % (33.0-36.5); MEAN CORPUSCULAR VOLUME 91.2 FL (78-98); MEAN PLATELET VOLUME 9.8 FL (7.4-10.4); MONOCYTES # (AUTO) 1.2 X10'3 (0-0.9); MONOCYTES % (AUTO) 9.8 % (2-12); NEUTROPHILS # (AUTO) 9.2 X10'3 (1.8-7.7); NEUTROPHILS % (AUTO) 73.3 % (42-75); PLATELET COUNT 109 X10'3 (140-440); RED BLOOD COUNT 2.59 X10'6 (4.70-6.10); RED CELL DISTRIBUTION WIDTH 18.5 % (11.5-14.5); WHITE BLOOD COUNT 12.6 X10'3 (4.5-11.0)
[2017-03-21] MEDS: rifaximin 550mg tablet PO SCH ×2 (08:00→20:15)
[2017-03-21] MEDS: zinc oxide ointment 30gm tube TP SCH ×2 (08:00→20:16)
[2017-03-21] MEDS: cilostazol 50mg tablet PO SCH ×2 (08:00→20:16)
[2017-03-21] MEDS: vancomycin inj 1,250 MG in dextrose 5%-water 250 ML IV SCH (08:09)
[2017-03-21] MEDS ORDERED: epoetin 20,000 units/ml inj SQ ONE (08:20)
[2017-03-21] MEDS: potassium Cl 20 mEq SR tablet PO SCH ×3 (08:21→17:40)
[2017-03-21] MEDS: diltiazem CD 120mg capsule (once-daily) PO SCH (08:23)
[2017-03-21] MEDS: gabapentin 300mg capsule PO SCH (09:28)
[2017-03-21] MEDS: zinc sulfate 220mg capsule PO SCH (09:29)
[2017-03-21] MEDS: lactobacillus rhamnosus 10,000 MMU CELLS/CAPSULE PO SCH ×2 (09:30→17:40)
[2017-03-21] MEDS: furosemide 20MG tablet PO SCH (09:30)
[2017-03-21] MEDS: propranolol 10mg tablet PO SCH (09:31)
[2017-03-21] MEDS: vitamin D (cholecalciferol) 1,000 unit tablet PO SCH (09:32)
[2017-03-21] MEDS: ascorbic acid 500mg tablet PO SCH (09:32)
[2017-03-21] MEDS: multivitamins, therapeutics tablet PO SCH (09:32)
[2017-03-21 10:10] LABS: INR 1.6 INR; PARTIAL THROMBOPLASTIN TIME 36 SECONDS (22-32); PROTHROMBIN TIME 16.1 SECONDS (9.0-12.0)
[2017-03-21] MEDS ORDERED: desflurane 240ml liquid inh. IH ONE (12:31)
[2017-03-21] MEDS ORDERED: fentaNYL/PF 50MCG/1 ML 2ML syringe ONE ×2 (12:37→13:00)
[2017-03-21] MEDS ORDERED: propofol inj 20 ML IV ONE (12:38)
[2017-03-21] MEDS ORDERED: rocuronium 10mg/ml inj IV ONE (12:40)
[2017-03-21] MEDS ORDERED: ringers solution, lacted 1,000 ML IV SCH (13:31)
[2017-03-21] MEDS ORDERED: morphine sulfate 8 MG/ML SYRINGE IV PRN ×2 (13:35)
[2017-03-21] MEDS ORDERED: meperidine/PF 25mg/ml syringe IV PRN ×3 (13:35)
[2017-03-21] MEDS ORDERED: proCHLORperazine 10 MG/2 ml inj IV PRN (13:35)
[2017-03-21] MEDS ORDERED: ondansetron/PF 4mg/2ml inj IV PRN (13:35)
[2017-03-21] MEDS ORDERED: neostigmine methylsulfate 1 MG/ML 10ml vial ONE (13:59)
[2017-03-21] MEDS ORDERED: glycopyrrolate 0.2mg/ml inj ONE (14:01)
[2017-03-21 15:55] LABS: MAGNESIUM 1.2 MG/DL (1.5-2.4); POTASSIUM 3.6 MMOL/L (3.5-5.1)
[2017-03-21] MEDS ORDERED: magnesium 2GM in 50ml NS 50 ML IV PRN (19:40)
[2017-03-21] MEDS ORDERED: potassium Cl 40MEQ/NS 500ml 500 ML IV PRN ×2 (19:40)
[2017-03-21] MEDS ORDERED: potassium Cl 20 mEq SR tablet PO PRN ×2 (19:40)
[2017-03-21] MEDS ORDERED: magnesium 4gm in 100ml NS 100 ML IV PRN (19:40)
[2017-03-22] MEDS: pantoprazole 40MG/NS 100ML BAG 100 ML IV SCH ×4 (00:37→16:25)
[2017-03-22] MEDS: lactulose 20gm/30ml cup PO SCH ×2 (01:00→08:41)
[2017-03-22 03:00] VITALS: BP 98/72
[2017-03-22 05:36] LABS: BASOPHILS % (AUTO) 0.2 % (0-1); EOSINOPHILS # (AUTO) 0.4 X10'3 (0-0.9); EOSINOPHILS % (AUTO) 3.1 % (0-6); HEMATOCRIT 25.7 % (42.0-52.0); HEMOGLOBIN 8.8 g/dl (14.0-17.9); LYMPHOCYTES # (AUTO) 1.7 X10'3 (1.1-4.8); LYMPHOCYTES % (AUTO) 12.3 % (21-51); MEAN CORPUSCULAR HEMOGLOBIN 32.3 PG (27.0-31.0); MEAN CORPUSCULAR HGB CONC 34.3 % (33.0-36.5); MONOCYTES # (AUTO) 1.6 X10'3 (0-0.9); NEUTROPHILS # (AUTO) 10.4 X10'3 (1.8-7.7); NEUTROPHILS % (AUTO) 73.4 % (42-75); PLATELET COUNT 117 X10'3 (140-440); RED BLOOD COUNT 2.73 X10'6 (4.70-6.10); RED CELL DISTRIBUTION WIDTH 18.6 % (11.5-14.5); WHITE BLOOD COUNT 14.2 X10'3 (4.5-11.0)
[2017-03-22 06:00] VITALS: BP 103/47
[2017-03-22 06:42] LABS: ALANINE AMINOTRANSFERASE 51 U/L (12-78); ALBUMIN 1.1 G/DL (3.4-5.0); ALBUMIN/GLOBULIN RATIO 0.3 (1.1-1.5); ALKALINE PHOSPHATASE 101 IU/L (46-116); ANION GAP 11 (8-16); ASPARTATE AMINO TRANSFERASE 70 U/L (10-37); BILIRUBIN,TOTAL 1.7 MG/DL (0.1-1.0); BLOOD UREA NITROGEN 23 MG/DL (7-18); BUN/CREATININE RATIO 11.3 (5.4-32.0); CALCIUM 7.6 MG/DL (8.5-10.1); CHLORIDE 114 MMOL/L (99-107); CREATININE 2.04 MG/DL (0.60-1.10); GLUCOSE 107 MG/DL (70-104); MAGNESIUM 1.9 MG/DL (1.5-2.4); POTASSIUM 3.1 MMOL/L (3.5-5.1); SODIUM 144 MMOL/L (135-145); TOTAL CARBON DIOXIDE 19.5 MMOL/L (24-32); eGFR 33 ML/MIN
[2017-03-22] MEDS: diltiazem CD 120mg capsule (once-daily) PO SCH (08:32)
[2017-03-22] MEDS: lactobacillus rhamnosus 10,000 MMU CELLS/CAPSULE PO SCH ×2 (08:33→16:36)
[2017-03-22] MEDS: furosemide 20MG tablet PO SCH (08:33)
[2017-03-22] MEDS: potassium Cl 20 mEq SR tablet PO SCH ×2 (08:34→16:36)
[2017-03-22] MEDS: cilostazol 50mg tablet PO SCH ×2 (08:34→20:55)
[2017-03-22] MEDS: ascorbic acid 500mg tablet PO SCH (08:35)
[2017-03-22] MEDS: vitamin D (cholecalciferol) 1,000 unit tablet PO SCH (08:35)
[2017-03-22] MEDS: rifaximin 550mg tablet PO SCH ×2 (08:36→20:54)
[2017-03-22] MEDS: propranolol 10mg tablet PO SCH (08:36)
[2017-03-22] MEDS: gabapentin 300mg capsule PO SCH (08:36)
[2017-03-22] MEDS: multivitamins, therapeutics tablet PO SCH (08:36)
[2017-03-22] MEDS: zinc oxide ointment 30gm tube TP SCH ×2 (08:37→20:55)
[2017-03-22] MEDS: piperacillin/tazo 3.375gm/50ml 50 ML IV SCH (08:39)
[2017-03-22] MEDS: zinc sulfate 220mg capsule PO SCH (08:39)
[2017-03-22] MEDS: vancomycin inj 1,250 MG in dextrose 5%-water 250 ML IV SCH (08:39)
[2017-03-22 11:00] VITALS: BP 109/52
[2017-03-22 15:00] VITALS: BP 106/48
[2017-03-22] MEDS ORDERED: potassium Cl oral solution 20 MEQ/15 ML PO PRN (18:30)
[2017-03-22 19:00] VITALS: BP 106/52
[2017-03-22] MEDS ORDERED: lactulose 20gm/30ml cup PO SCH (20:00)
[2017-03-22] MEDS: potassium Cl oral solution 20 MEQ/15 ML PO SCH (20:54)
[2017-03-22] MEDS: pantoprazole 40 MG vial IV SCH (20:55)
[2017-03-22 23:00] VITALS: BP 84/35
[2017-03-23] VITALS (48 sets, daily range): BP systolic 72–155; BP diastolic 35–104
[2017-03-23] MEDS ORDERED: albumin (human) 25% 100 ML IV solution IV ONE (00:30)
[2017-03-23 00:36] LABS: MAGNESIUM 1.6 MG/DL (1.5-2.4); PHOSPHORUS 3.7 MG/DL (2.3-4.5)
[2017-03-23 01:05] LABS: BASOPHILS % (AUTO) 0.1 % (0-1); EOSINOPHILS % (AUTO) 0.1 % (0-6); LYMPHOCYTES # (AUTO) 1.9 X10'3 (1.1-4.8); LYMPHOCYTES % (AUTO) 6.2 % (21-51); MEAN CORPUSCULAR HEMOGLOBIN 32.7 PG (27.0-31.0); MEAN CORPUSCULAR VOLUME 93.6 FL (78-98); MEAN PLATELET VOLUME 9.1 FL (7.4-10.4); MONOCYTES # (AUTO) 1.7 X10'3 (0-0.9); MONOCYTES % (AUTO) 5.4 % (2-12); NEUTROPHILS % (AUTO) 88.2 % (42-75); PLATELET COUNT 105 X10'3 (140-440); RED BLOOD COUNT 2.01 X10'6 (4.70-6.10); RED CELL DISTRIBUTION WIDTH 20.5 % (11.5-14.5)
[2017-03-23 01:12] LABS: WHITE BLOOD COUNT 30.6 X10'3 (4.5-11.0)
[2017-03-23 01:13] LABS: HEMATOCRIT 18.8 % (42.0-52.0); HEMOGLOBIN 6.6 g/dl (14.0-17.9)
[2017-03-23 01:25] LABS: ALANINE AMINOTRANSFERASE 39 U/L (12-78); ALBUMIN 0.8 G/DL (3.4-5.0); ALBUMIN/GLOBULIN RATIO 0.3 (1.1-1.5); ALKALINE PHOSPHATASE 89 IU/L (46-116); ANION GAP 11 (8-16); ASPARTATE AMINO TRANSFERASE 56 U/L (10-37); BILIRUBIN,TOTAL 1.6 MG/DL (0.1-1.0); BLOOD UREA NITROGEN 24 MG/DL (7-18); BUN/CREATININE RATIO 10.5 (5.4-32.0); CALCIUM 6.9 MG/DL (8.5-10.1); CHLORIDE 113 MMOL/L (99-107); CREATININE 2.28 MG/DL (0.60-1.10); GLUCOSE 138 MG/DL (70-104); PREALBUMIN 5.9 MG/DL (19-36); SODIUM 141 MMOL/L (135-145); TOTAL CARBON DIOXIDE 17.5 MMOL/L (24-32); TOTAL PROTEIN 3.8 G/DL (6.4-8.2); eGFR 29 ML/MIN
[2017-03-23 02:54] LABS: TOTAL CELLS COUNTED 100
[2017-03-23 02:55] LABS: ANISOCYTOSIS 2+; POLYCHROMASIA 2+
[2017-03-23 02:56] LABS: PLATELET ESTIMATE DECREASED
[2017-03-23 02:57] LABS: POIKILOCYTOSIS 1+
[2017-03-23 02:58] LABS: SCHISTOCYTES 1+
[2017-03-23 03:06] LABS: SMUDGE CELLS 2+
[2017-03-23 07:38] LABS: BASOPHILS % (AUTO) 0 % (0-1); EOSINOPHILS # (AUTO) 0.3 X10'3 (0-0.9); EOSINOPHILS % (AUTO) 1.8 % (0-6); LYMPHOCYTES # (AUTO) 1.3 X10'3 (1.1-4.8); LYMPHOCYTES % (AUTO) 7.4 % (21-51); MEAN CORPUSCULAR HEMOGLOBIN 31.7 PG (27.0-31.0); MEAN CORPUSCULAR HGB CONC 33.9 % (33.0-36.5); MEAN CORPUSCULAR VOLUME 93.5 FL (78-98); MEAN PLATELET VOLUME 8.9 FL (7.4-10.4); MONOCYTES # (AUTO) 0.9 X10'3 (0-0.9); MONOCYTES % (AUTO) 5.2 % (2-12); NEUTROPHILS # (AUTO) 15.1 X10'3 (1.8-7.7); NEUTROPHILS % (AUTO) 85.6 % (42-75); PLATELET COUNT 70 X10'3 (140-440); RED BLOOD COUNT 1.98 X10'6 (4.70-6.10); RED CELL DISTRIBUTION WIDTH 16.8 % (11.5-14.5); WHITE BLOOD COUNT 17.6 X10'3 (4.5-11.0)
[2017-03-23 07:52] LABS: HEMATOCRIT 18.5 % (42.0-52.0); HEMOGLOBIN 6.3 g/dl (14.0-17.9)
[2017-03-23] MEDS: zinc sulfate 220mg capsule PO SCH (08:00)
[2017-03-23] MEDS: cilostazol 50mg tablet PO SCH (08:00)
[2017-03-23] MEDS: zinc oxide ointment 30gm tube TP SCH ×2 (08:00→22:22)
[2017-03-23] MEDS: furosemide 20MG tablet PO SCH (08:00)
[2017-03-23] MEDS: rifaximin 550mg tablet PO SCH ×2 (08:00→20:00)
[2017-03-23] MEDS: diltiazem CD 120mg capsule (once-daily) PO SCH (08:00)
[2017-03-23] MEDS: propranolol 10mg tablet PO SCH (08:00)
[2017-03-23 08:01] LABS: ALANINE AMINOTRANSFERASE 36 U/L (12-78); ALBUMIN 1.5 G/DL (3.4-5.0); ALBUMIN/GLOBULIN RATIO 0.7 (1.1-1.5); ALKALINE PHOSPHATASE 72 IU/L (46-116); ANION GAP 12 (8-16); ASPARTATE AMINO TRANSFERASE 56 U/L (10-37); BILIRUBIN,TOTAL 3.4 MG/DL (0.1-1.0); BLOOD UREA NITROGEN 27 MG/DL (7-18); BUN/CREATININE RATIO 11.6 (5.4-32.0); CHLORIDE 113 MMOL/L (99-107); CREATININE 2.33 MG/DL (0.60-1.10); GLUCOSE 132 MG/DL (70-104); MAGNESIUM 1.4 MG/DL (1.5-2.4); PHOSPHORUS 3.5 MG/DL (2.3-4.5); POTASSIUM 3.7 MMOL/L (3.5-5.1); PREALBUMIN 6.7 MG/DL (19-36); SODIUM 141 MMOL/L (135-145); TOTAL CARBON DIOXIDE 15.8 MMOL/L (24-32); TOTAL PROTEIN 3.8 G/DL (6.4-8.2); eGFR 29 ML/MIN
[2017-03-23 08:24] LABS: INR 2.4 INR; PARTIAL THROMBOPLASTIN TIME 56 SECONDS (22-32); PROTHROMBIN TIME 24.2 SECONDS (9.0-12.0)
[2017-03-23] MEDS: vancomycin inj 1,250 MG in dextrose 5%-water 250 ML IV SCH (08:24)
[2017-03-23] MEDS: vitamin D (cholecalciferol) 1,000 unit tablet PO SCH (08:25)
[2017-03-23] MEDS: multivitamins, therapeutics tablet PO SCH (08:25)
[2017-03-23] MEDS: potassium Cl oral solution 20 MEQ/15 ML PO SCH ×2 (08:26→20:00)
[2017-03-23] MEDS: lactobacillus rhamnosus 10,000 MMU CELLS/CAPSULE PO SCH ×2 (08:26→17:30)
[2017-03-23] MEDS: ascorbic acid 500mg tablet PO SCH (08:26)
[2017-03-23] MEDS: gabapentin 300mg capsule PO SCH (08:26)
[2017-03-23] MEDS: pantoprazole 40 MG vial IV SCH (08:27)
[2017-03-23] MEDS: pantoprazole 40MG/NS 100ML BAG 100 ML IV SCH ×4 (10:32→20:35)
[2017-03-23] MEDS ORDERED: NORepinephrine 8mg/ 250ml NS 250 ML IV PRN (13:41)
[2017-03-23] MEDS ORDERED: normal saline 1000ml 1,000 ML IV ONE (13:55)
[2017-03-23 14:28] LABS: MEAN CORPUSCULAR HEMOGLOBIN 30.3 PG (27.0-31.0); MEAN CORPUSCULAR HGB CONC 33.5 % (33.0-36.5); MEAN CORPUSCULAR VOLUME 90.5 FL (78-98); MEAN PLATELET VOLUME 8.9 FL (7.4-10.4); PLATELET COUNT 60 X10'3 (140-440); RED BLOOD COUNT 2.29 X10'6 (4.70-6.10); RED CELL DISTRIBUTION WIDTH 15.4 % (11.5-14.5); WHITE BLOOD COUNT 16.7 X10'3 (4.5-11.0)
[2017-03-23] MEDS ORDERED: LIDOcaine Viscous 15ml cup ONE (14:37)
[2017-03-23] MEDS ORDERED: fentaNYL/PF 50MCG/1 ML 2ML syringe ONE (14:37)
[2017-03-23] MEDS ORDERED: MIDAZolam 1mg/ml 10ml vial ONE (14:37)
[2017-03-23 14:41] LABS: HEMATOCRIT 20.7 % (42.0-52.0); HEMOGLOBIN 6.9 g/dl (14.0-17.9)
[2017-03-23] MEDS ORDERED: epiNEPHrine 0.1mg/ml 10ml syringe ONE ×2 (15:42→17:20)
[2017-03-23] MEDS ORDERED: normal saline 1000ml 1,000 ML IV SCH (20:43)
[2017-03-23] MEDS ORDERED: fentaNYL/PF 50MCG/1 ML 2ML syringe IV PRN (20:45)
[2017-03-23] MEDS ORDERED: simethicone 40mg/0.6ml oral drops 30ml MC ONE (20:45)
[2017-03-23] MEDS ORDERED: MIDAZolam 5mg/5ml vial IV PRN (20:45)
[2017-03-23] MEDS ORDERED: LIDOcaine Viscous 15ml cup PO ONE (20:45)
[2017-03-23 21:19] LABS: HEMATOCRIT 28.3 % (42.0-52.0); HEMOGLOBIN 9.6 g/dl (14.0-17.9); MEAN CORPUSCULAR HEMOGLOBIN 30.3 PG (27.0-31.0); MEAN CORPUSCULAR HGB CONC 33.8 % (33.0-36.5); MEAN CORPUSCULAR VOLUME 89.6 FL (78-98); MEAN PLATELET VOLUME 8.6 FL (7.4-10.4); PLATELET COUNT 93 X10'3 (140-440); RED BLOOD COUNT 3.15 X10'6 (4.70-6.10); RED CELL DISTRIBUTION WIDTH 15.3 % (11.5-14.5); WHITE BLOOD COUNT 16.6 X10'3 (4.5-11.0)
[2017-03-24] VITALS (23 sets, daily range): BP systolic 82–151; BP diastolic 40–68
[2017-03-24 01:56] LABS: ANION GAP 11 (8-16); CHLORIDE 117 MMOL/L (99-107); SODIUM 144 MMOL/L (135-145); TOTAL CARBON DIOXIDE 16.3 MMOL/L (24-32)
[2017-03-24] MEDS: pantoprazole 40MG/NS 100ML BAG 100 ML IV SCH ×5 (01:57→21:25)
[2017-03-24 01:59] LABS: BLOOD UREA NITROGEN 38 MG/DL (7-18); GLUCOSE 99 MG/DL (70-104)
[2017-03-24 02:00] LABS: ALBUMIN 1.1 G/DL (3.4-5.0); ALBUMIN/GLOBULIN RATIO 0.5 (1.1-1.5); BILIRUBIN,TOTAL 3.4 MG/DL (0.1-1.0); CALCIUM 6.9 MG/DL (8.5-10.1); CREATININE 2.72 MG/DL (0.60-1.10); MAGNESIUM 1.3 MG/DL (1.5-2.4); PHOSPHORUS 3.2 MG/DL (2.3-4.5); TOTAL PROTEIN 3.5 G/DL (6.4-8.2); eGFR 24 ML/MIN
[2017-03-24 02:01] LABS: ALANINE AMINOTRANSFERASE 31 U/L (12-78); ALKALINE PHOSPHATASE 62 IU/L (46-116); ASPARTATE AMINO TRANSFERASE 50 U/L (10-37)
[2017-03-24 02:23] LABS: HEMATOCRIT 25.8 % (42.0-52.0); HEMOGLOBIN 8.8 g/dl (14.0-17.9); MEAN CORPUSCULAR VOLUME 91.1 FL (78-98); MEAN PLATELET VOLUME 9.6 FL (7.4-10.4); PLATELET COUNT 94 X10'3 (140-440); RED BLOOD COUNT 2.83 X10'6 (4.70-6.10); RED CELL DISTRIBUTION WIDTH 15.7 % (11.5-14.5)
[2017-03-24 02:26] LABS: WHITE BLOOD COUNT 27.9 X10'3 (4.5-11.0)
[2017-03-24] MEDS ORDERED: CefTRIAXone 2gm/NS 100ml IVPB 100 ML IV ONE (04:30)
[2017-03-24 05:14] LABS: BASOPHILS % (AUTO) 0.1 % (0-1); EOSINOPHILS # (AUTO) 0.6 X10'3 (0-0.9); EOSINOPHILS % (AUTO) 1.7 % (0-6); HEMOGLOBIN 9.4 g/dl (14.0-17.9); LYMPHOCYTES # (AUTO) 1.9 X10'3 (1.1-4.8); LYMPHOCYTES % (AUTO) 5.5 % (21-51); MEAN CORPUSCULAR HEMOGLOBIN 30.2 PG (27.0-31.0); MEAN CORPUSCULAR HGB CONC 33.6 % (33.0-36.5); MEAN CORPUSCULAR VOLUME 89.8 FL (78-98); MEAN PLATELET VOLUME 8.8 FL (7.4-10.4); NEUTROPHILS # (AUTO) 31.2 X10'3 (1.8-7.7); NEUTROPHILS % (AUTO) 89.7 % (42-75); PLATELET COUNT 116 X10'3 (140-440); RED BLOOD COUNT 3.12 X10'6 (4.70-6.10); RED CELL DISTRIBUTION WIDTH 15.6 % (11.5-14.5)
[2017-03-24 05:25] LABS: WHITE BLOOD COUNT 34.8 X10'3 (4.5-11.0)
[2017-03-24 06:49] LABS: ANISOCYTOSIS 1+; MICROCYTOSIS 2+; PLATELET ESTIMATE DECREASED; TOTAL CELLS COUNTED 100
[2017-03-24 06:50] LABS: GIANT PLATELET FEW; LARGE PLATELETS FEW
[2017-03-24] MEDS: lactobacillus rhamnosus 10,000 MMU CELLS/CAPSULE PO SCH ×3 (07:30→17:05)
[2017-03-24] MEDS: multivitamins, therapeutics tablet PO SCH (07:56)
[2017-03-24] MEDS: zinc sulfate 220mg capsule PO SCH (07:57)
[2017-03-24] MEDS: ascorbic acid 500mg tablet PO SCH ×2 (07:57→10:53)
[2017-03-24] MEDS: vitamin D (cholecalciferol) 1,000 unit tablet PO SCH ×2 (07:57→10:54)
[2017-03-24 08:58] LABS: HEMATOCRIT 27.1 % (42.0-52.0); HEMOGLOBIN 9.2 g/dl (14.0-17.9); MEAN CORPUSCULAR HEMOGLOBIN 30.6 PG (27.0-31.0); MEAN CORPUSCULAR VOLUME 90.2 FL (78-98); MEAN PLATELET VOLUME 8.9 FL (7.4-10.4); PLATELET COUNT 112 X10'3 (140-440); RED CELL DISTRIBUTION WIDTH 15.8 % (11.5-14.5)
[2017-03-24] MEDS ORDERED: normal saline 1000ml 1,000 ML IV ONE (10:35)
[2017-03-24] MEDS: rifaximin 550mg tablet PO SCH ×2 (10:54→20:03)
[2017-03-24] MEDS: gabapentin 300mg capsule PO SCH (10:56)
[2017-03-24] MEDS: zinc oxide ointment 30gm tube TP SCH ×2 (10:57→20:03)
[2017-03-24] MEDS: potassium Cl oral solution 20 MEQ/15 ML PO SCH ×2 (11:02→20:03)
[2017-03-24 11:23] LABS: LACTIC SEPSIS 1.6 MMOL/L (0.4-2.0)
[2017-03-24] MEDS: normal saline 1000ml 1,000 ML IV SCH ×3 (11:33→23:30)
[2017-03-24] MEDS: emollient combination-Eucerin 250 ML LOTION TP SCH (17:06)
[2017-03-24 23:59] LABS: HEMATOCRIT 26.6 % (42.0-52.0); MEAN CORPUSCULAR HEMOGLOBIN 31.2 PG (27.0-31.0); MEAN CORPUSCULAR VOLUME 91.7 FL (78-98); MEAN PLATELET VOLUME 8.6 FL (7.4-10.4); PLATELET COUNT 107 X10'3 (140-440); RED CELL DISTRIBUTION WIDTH 16.9 % (11.5-14.5)
[2017-03-25] VITALS (23 sets, daily range): BP systolic 101–149; BP diastolic 51–75
[2017-03-25 00:05] LABS: WHITE BLOOD COUNT 28.3 X10'3 (4.5-11.0)
[2017-03-25 02:47] LABS: BASOPHILS % (AUTO) 0.1 % (0-1); EOSINOPHILS # (AUTO) 0.3 X10'3 (0-0.9); EOSINOPHILS % (AUTO) 0.9 % (0-6); HEMATOCRIT 25.9 % (42.0-52.0); HEMOGLOBIN 8.8 g/dl (14.0-17.9); LYMPHOCYTES # (AUTO) 1.6 X10'3 (1.1-4.8); LYMPHOCYTES % (AUTO) 5.5 % (21-51); MEAN CORPUSCULAR HEMOGLOBIN 31.1 PG (27.0-31.0); MEAN CORPUSCULAR HGB CONC 34.1 % (33.0-36.5); MEAN CORPUSCULAR VOLUME 91.3 FL (78-98); MEAN PLATELET VOLUME 8.3 FL (7.4-10.4); MONOCYTES % (AUTO) 3.4 % (2-12); NEUTROPHILS # (AUTO) 26.8 X10'3 (1.8-7.7); NEUTROPHILS % (AUTO) 90.1 % (42-75); PLATELET COUNT 104 X10'3 (140-440); RED BLOOD COUNT 2.83 X10'6 (4.70-6.10); RED CELL DISTRIBUTION WIDTH 16.5 % (11.5-14.5)
[2017-03-25 02:53] LABS: WHITE BLOOD COUNT 29.7 X10'3 (4.5-11.0)
[2017-03-25] MEDS: pantoprazole 40MG/NS 100ML BAG 100 ML IV SCH ×5 (03:07→20:52)
[2017-03-25 03:13] LABS: MAGNESIUM 1.4 MG/DL (1.5-2.4); PHOSPHORUS 3.3 MG/DL (2.3-4.5)
[2017-03-25 04:41] LABS: ALBUMIN 1.2 G/DL (3.4-5.0); ANION GAP 13 (8-16); BLOOD UREA NITROGEN 43 MG/DL (7-18); CALCIUM 7.6 MG/DL (8.5-10.1); CHLORIDE 117 MMOL/L (99-107); CREATININE 2.69 MG/DL (0.60-1.10); GLUCOSE 100 MG/DL (70-104); POTASSIUM 3.5 MMOL/L (3.5-5.1); SODIUM 144 MMOL/L (135-145); eGFR 24 ML/MIN
[2017-03-25 04:44] LABS: TOTAL CARBON DIOXIDE 14.4 MMOL/L (24-32)
[2017-03-25] MEDS ORDERED: magnesium 4gm in 100ml NS 100 ML IV PRN (04:50)
[2017-03-25] MEDS ORDERED: magnesium 2GM in 50ml NS 50 ML IV PRN (04:50)
[2017-03-25] MEDS ORDERED: potassium Cl 40MEQ/250ML bag 250 ML IV PRN ×2 (04:50)
[2017-03-25] MEDS ORDERED: magnesium Cl slow-release 64mg tablet PO PRN (04:50)
[2017-03-25] MEDS ORDERED: potassium Cl 20 mEq SR tablet PO PRN (04:50)
[2017-03-25 06:04] LABS: HEMATOCRIT 26.8 % (42.0-52.0); HEMOGLOBIN 9.1 g/dl (14.0-17.9); MEAN CORPUSCULAR HEMOGLOBIN 31.4 PG (27.0-31.0); MEAN CORPUSCULAR HGB CONC 33.9 % (33.0-36.5); MEAN CORPUSCULAR VOLUME 92.6 FL (78-98); MEAN PLATELET VOLUME 8.2 FL (7.4-10.4); PLATELET COUNT 109 X10'3 (140-440)
[2017-03-25 06:17] LABS: WHITE BLOOD COUNT 32.9 X10'3 (4.5-11.0)
[2017-03-25 07:13] LABS: TOTAL CELLS COUNTED 100
[2017-03-25 07:14] LABS: ANISOCYTOSIS 1+; BURR CELLS 3+; PLATELET ESTIMATE DECREASED; POLYCHROMASIA 2+
[2017-03-25 07:15] LABS: ACANTHOCYTES FEW; LARGE PLATELETS FEW; POIKILOCYTOSIS 1+
[2017-03-25] MEDS: normal saline 1000ml 1,000 ML IV SCH (07:48)
[2017-03-25] MEDS: lactobacillus rhamnosus 10,000 MMU CELLS/CAPSULE PO SCH ×2 (07:55→16:39)
[2017-03-25] MEDS: zinc sulfate 220mg capsule PO SCH (07:55)
[2017-03-25] MEDS: gabapentin 300mg capsule PO SCH (07:55)
[2017-03-25] MEDS: rifaximin 550mg tablet PO SCH ×2 (07:55→20:52)
[2017-03-25] MEDS: vitamin D (cholecalciferol) 1,000 unit tablet PO SCH (07:56)
[2017-03-25] MEDS: ascorbic acid 500mg tablet PO SCH (07:56)
[2017-03-25] MEDS ORDERED: CefTRIAXone 2gm/NS 100ml IVPB 100 ML IV SCH (08:00)
[2017-03-25] MEDS: K and/or MAG REPLACEMENT MC SCH (08:00)
[2017-03-25 09:30] LABS: HEMATOCRIT 25.6 % (42.0-52.0); HEMOGLOBIN 8.7 g/dl (14.0-17.9); MEAN CORPUSCULAR HEMOGLOBIN 31.9 PG (27.0-31.0); MEAN CORPUSCULAR VOLUME 93.7 FL (78-98); MEAN PLATELET VOLUME 8.6 FL (7.4-10.4); PLATELET COUNT 96 X10'3 (140-440); RED BLOOD COUNT 2.74 X10'6 (4.70-6.10); RED CELL DISTRIBUTION WIDTH 17.2 % (11.5-14.5)
[2017-03-25 09:34] LABS: WHITE BLOOD COUNT 28.7 X10'3 (4.5-11.0)
[2017-03-25] MEDS: emollient combination-Eucerin 250 ML LOTION TP SCH (10:01)
[2017-03-25] MEDS: zinc oxide ointment 30gm tube TP SCH ×2 (10:01→20:54)
[2017-03-25] MEDS: multivitamins, therapeutics tablet PO SCH (10:01)
[2017-03-25] MEDS: metroNIDAZOLE-Flagyl 500mg/NS 100 ML IV SCH ×2 (10:01→16:37)
[2017-03-25] MEDS: potassium Cl oral solution 20 MEQ/15 ML PO SCH ×2 (10:01→20:53)
[2017-03-25] MEDS: sodium bicarbonate (8.4%) inj. 150 MEQ in dextrose 5%-water 1,000 ML IV SCH (11:47)
[2017-03-25] MEDS: cefepime 1GM/NS ADD-VANTAGE 100 ML IV SCH ×2 (11:47→20:52)
[2017-03-25 22:46] LABS: HEMOGLOBIN 8.5 g/dl (14.0-17.9); MEAN CORPUSCULAR HEMOGLOBIN 31.4 PG (27.0-31.0); MEAN CORPUSCULAR HGB CONC 33.9 % (33.0-36.5); MEAN CORPUSCULAR VOLUME 92.7 FL (78-98); MEAN PLATELET VOLUME 8.5 FL (7.4-10.4); PLATELET COUNT 95 X10'3 (140-440); RED CELL DISTRIBUTION WIDTH 17.7 % (11.5-14.5); WHITE BLOOD COUNT 24.7 X10'3 (4.5-11.0)
[2017-03-26] VITALS (24 sets, daily range): BP systolic 94–132; BP diastolic 48–79
[2017-03-26] MEDS: metroNIDAZOLE-Flagyl 500mg/NS 100 ML IV SCH ×4 (00:38→23:08)
[2017-03-26 03:52] LABS: BASOPHILS % (AUTO) 0 % (0-1); EOSINOPHILS # (AUTO) 0.1 X10'3 (0-0.9); EOSINOPHILS % (AUTO) 0.3 % (0-6); HEMATOCRIT 23.8 % (42.0-52.0); HEMOGLOBIN 7.9 g/dl (14.0-17.9); LYMPHOCYTES % (AUTO) 4.3 % (21-51); MEAN CORPUSCULAR HEMOGLOBIN 30.2 PG (27.0-31.0); MEAN CORPUSCULAR HGB CONC 33.1 % (33.0-36.5); MEAN PLATELET VOLUME 8.5 FL (7.4-10.4); MONOCYTES # (AUTO) 0.6 X10'3 (0-0.9); MONOCYTES % (AUTO) 2.8 % (2-12); NEUTROPHILS # (AUTO) 21.6 X10'3 (1.8-7.7); NEUTROPHILS % (AUTO) 92.6 % (42-75); PLATELET COUNT 89 X10'3 (140-440); RED BLOOD COUNT 2.62 X10'6 (4.70-6.10); RED CELL DISTRIBUTION WIDTH 17.5 % (11.5-14.5); WHITE BLOOD COUNT 23.3 X10'3 (4.5-11.0)
[2017-03-26 04:01] LABS: ANION GAP 11 (8-16); BLOOD UREA NITROGEN 40 MG/DL (7-18); BUN/CREATININE RATIO 16.3 (5.4-32.0); CALCIUM 7.3 MG/DL (8.5-10.1); CHLORIDE 116 MMOL/L (99-107); CREATININE 2.46 MG/DL (0.60-1.10); GLUCOSE 119 MG/DL (70-104); MAGNESIUM 1.5 MG/DL (1.5-2.4); PHOSPHORUS 3.5 MG/DL (2.3-4.5); POTASSIUM 3.4 MMOL/L (3.5-5.1); SODIUM 144 MMOL/L (135-145); TOTAL CARBON DIOXIDE 17.3 MMOL/L (24-32); eGFR 27 ML/MIN
[2017-03-26] MEDS: pantoprazole 40MG/NS 100ML BAG 100 ML IV SCH ×2 (04:45→10:20)
[2017-03-26] MEDS: sodium bicarbonate (8.4%) inj. 150 MEQ in dextrose 5%-water 1,000 ML IV SCH (05:00)
[2017-03-26] MEDS: lactobacillus rhamnosus 10,000 MMU CELLS/CAPSULE PO SCH ×2 (07:23→17:12)
[2017-03-26] MEDS: gabapentin 300mg capsule PO SCH (07:24)
[2017-03-26] MEDS: potassium Cl oral solution 20 MEQ/15 ML PO SCH ×2 (07:24→19:32)
[2017-03-26] MEDS: zinc sulfate 220mg capsule PO SCH (07:25)
[2017-03-26] MEDS: vitamin D (cholecalciferol) 1,000 unit tablet PO SCH (07:25)
[2017-03-26] MEDS: rifaximin 550mg tablet PO SCH ×2 (07:25→19:32)
[2017-03-26] MEDS: emollient combination-Eucerin 250 ML LOTION TP SCH (07:25)
[2017-03-26] MEDS: zinc oxide ointment 30gm tube TP SCH ×2 (07:25→19:36)
[2017-03-26] MEDS: ascorbic acid 500mg tablet PO SCH (07:25)
[2017-03-26] MEDS: multivitamins, therapeutics tablet PO SCH (07:25)
[2017-03-26] MEDS: potassium Cl 20 mEq SR tablet PO PRN ×3 (07:26→15:36)
[2017-03-26] MEDS: K and/or MAG REPLACEMENT MC SCH (08:00)
[2017-03-26 09:14] LABS: HEMOGLOBIN 8.8 g/dl (14.0-17.9); MEAN CORPUSCULAR HEMOGLOBIN 32.1 PG (27.0-31.0); MEAN CORPUSCULAR HGB CONC 33.7 % (33.0-36.5); MEAN CORPUSCULAR VOLUME 95.3 FL (78-98); MEAN PLATELET VOLUME 8.6 FL (7.4-10.4); PLATELET COUNT 96 X10'3 (140-440); RED BLOOD COUNT 2.73 X10'6 (4.70-6.10); RED CELL DISTRIBUTION WIDTH 18.5 % (11.5-14.5); WHITE BLOOD COUNT 24.9 X10'3 (4.5-11.0)
[2017-03-26] MEDS: cefepime 1GM/NS ADD-VANTAGE 100 ML IV SCH ×2 (10:20→19:32)
[2017-03-26] MEDS ORDERED: furosemide 10 MG/1 ML 10ml inj IV ONE (10:25)
[2017-03-26] MEDS ORDERED: albuterol 2.5 MG/3 ML nebule NEB PRN (19:10)
[2017-03-26] MEDS ORDERED: ipratropium/albuterol 3ml nebule NEB PRN (19:10)
[2017-03-26] MEDS ORDERED: albuterol 2.5 MG/3 ML nebule NEB SCH (19:10)
[2017-03-26] MEDS: ipratropium/albuterol 3ml nebule NEB SCH ×2 (19:24→21:00)
[2017-03-26 21:05] LABS: HEMATOCRIT 25.6 % (42.0-52.0); HEMOGLOBIN 8.6 g/dl (14.0-17.9); MEAN CORPUSCULAR HEMOGLOBIN 31.7 PG (27.0-31.0); MEAN CORPUSCULAR HGB CONC 33.5 % (33.0-36.5); MEAN CORPUSCULAR VOLUME 94.8 FL (78-98); MEAN PLATELET VOLUME 8.4 FL (7.4-10.4); PLATELET COUNT 92 X10'3 (140-440); RED CELL DISTRIBUTION WIDTH 21.1 % (11.5-14.5); WHITE BLOOD COUNT 21.4 X10'3 (4.5-11.0)
[2017-03-27] VITALS (23 sets, daily range): BP systolic 94–139; BP diastolic 47–68
[2017-03-27 02:24] LABS: BASOPHILS % (AUTO) 0 % (0-1); EOSINOPHILS # (AUTO) 0.4 X10'3 (0-0.9); EOSINOPHILS % (AUTO) 1.4 % (0-6); HEMATOCRIT 23.8 % (42.0-52.0); HEMOGLOBIN 7.9 g/dl (14.0-17.9); LYMPHOCYTES # (AUTO) 0.7 X10'3 (1.1-4.8); MEAN CORPUSCULAR HEMOGLOBIN 30.4 PG (27.0-31.0); MEAN CORPUSCULAR HGB CONC 33.1 % (33.0-36.5); MEAN CORPUSCULAR VOLUME 91.9 FL (78-98); MEAN PLATELET VOLUME 8.6 FL (7.4-10.4); MONOCYTES # (AUTO) 0.6 X10'3 (0-0.9); MONOCYTES % (AUTO) 2.4 % (2-12); NEUTROPHILS # (AUTO) 23.3 X10'3 (1.8-7.7); NEUTROPHILS % (AUTO) 93.2 % (42-75); PLATELET COUNT 85 X10'3 (140-440); RED BLOOD COUNT 2.59 X10'6 (4.70-6.10); RED CELL DISTRIBUTION WIDTH 19.3 % (11.5-14.5)
[2017-03-27 02:38] LABS: ALANINE AMINOTRANSFERASE 40 U/L (12-78); ALBUMIN/GLOBULIN RATIO 0.3 (1.1-1.5); ALKALINE PHOSPHATASE 104 IU/L (46-116); ANION GAP 11 (8-16); ASPARTATE AMINO TRANSFERASE 36 U/L (10-37); BILIRUBIN,TOTAL 1.7 MG/DL (0.1-1.0); BLOOD UREA NITROGEN 39 MG/DL (7-18); BUN/CREATININE RATIO 15.9 (5.4-32.0); CALCIUM 7.6 MG/DL (8.5-10.1); CHLORIDE 116 MMOL/L (99-107); CREATININE 2.45 MG/DL (0.60-1.10); GLUCOSE 104 MG/DL (70-104); MAGNESIUM 1.5 MG/DL (1.5-2.4); PHOSPHORUS 4.2 MG/DL (2.3-4.5); POTASSIUM 3.7 MMOL/L (3.5-5.1); SODIUM 144 MMOL/L (135-145); TOTAL CARBON DIOXIDE 16.8 MMOL/L (24-32); TOTAL PROTEIN 4.6 G/DL (6.4-8.2); eGFR 27 ML/MIN
[2017-03-27] MEDS: ipratropium/albuterol 3ml nebule NEB SCH ×2 (03:00→07:23)
[2017-03-27] MEDS: K and/or MAG REPLACEMENT MC SCH (06:53)
[2017-03-27] MEDS: cefepime 1GM/NS ADD-VANTAGE 100 ML IV SCH ×2 (07:58→19:52)
[2017-03-27] MEDS: metroNIDAZOLE-Flagyl 500mg/NS 100 ML IV SCH ×2 (07:58→16:58)
[2017-03-27] MEDS: multivitamins, therapeutics tablet PO SCH (07:59)
[2017-03-27] MEDS: vitamin D (cholecalciferol) 1,000 unit tablet PO SCH (07:59)
[2017-03-27] MEDS: lactobacillus rhamnosus 10,000 MMU CELLS/CAPSULE PO SCH ×2 (07:59→16:58)
[2017-03-27] MEDS: zinc sulfate 220mg capsule PO SCH (07:59)
[2017-03-27] MEDS: rifaximin 550mg tablet PO SCH ×2 (07:59→20:00)
[2017-03-27] MEDS: ascorbic acid 500mg tablet PO SCH (07:59)
[2017-03-27] MEDS: potassium Cl oral solution 20 MEQ/15 ML PO SCH ×2 (07:59→20:00)
[2017-03-27] MEDS: gabapentin 300mg capsule PO SCH (07:59)
[2017-03-27] MEDS: emollient combination-Eucerin 250 ML LOTION TP SCH (08:01)
[2017-03-27] MEDS: zinc oxide ointment 30gm tube TP SCH ×2 (08:01→19:52)
[2017-03-27 08:02] LABS: TOTAL CELLS COUNTED 100
[2017-03-27 08:03] LABS: PLATELET ESTIMATE DECREASED; POLYCHROMASIA 2+
[2017-03-27 08:04] LABS: BURR CELLS 1+
[2017-03-27 08:05] LABS: ACANTHOCYTES 1+; ANISOCYTOSIS 2+
[2017-03-27] MEDS ORDERED: vancomycin/NS 1 GM ADD-VANTAGE 250 ML X 1 DOSE IV SCH (08:55)
[2017-03-27 09:09] LABS: HEMOGLOBIN 8.5 g/dl (14.0-17.9); MEAN CORPUSCULAR HEMOGLOBIN 32.5 PG (27.0-31.0); MEAN CORPUSCULAR HGB CONC 33.9 % (33.0-36.5); MEAN PLATELET VOLUME 8.5 FL (7.4-10.4); PLATELET COUNT 93 X10'3 (140-440); RED CELL DISTRIBUTION WIDTH 21.8 % (11.5-14.5); WHITE BLOOD COUNT 23.9 X10'3 (4.5-11.0)
[2017-03-27] MEDS ORDERED: vancomycin/NS 1 GM ADD-VANTAGE 250 ML X 1 DOSE IV ONE (10:05)
[2017-03-27] MEDS: Protein Shake (high protein) 240ml (8oz) cup PO SCH ×2 (13:56→18:00)
[2017-03-27 21:03] LABS: HEMATOCRIT 25.2 % (42.0-52.0); HEMOGLOBIN 8.4 g/dl (14.0-17.9); MEAN CORPUSCULAR HEMOGLOBIN 32.2 PG (27.0-31.0); MEAN CORPUSCULAR HGB CONC 33.5 % (33.0-36.5); MEAN CORPUSCULAR VOLUME 96.1 FL (78-98); MEAN PLATELET VOLUME 8.4 FL (7.4-10.4); PLATELET COUNT 103 X10'3 (140-440); RED BLOOD COUNT 2.62 X10'6 (4.70-6.10); RED CELL DISTRIBUTION WIDTH 23.9 % (11.5-14.5); WHITE BLOOD COUNT 21.4 X10'3 (4.5-11.0)
[2017-03-28] VITALS (15 sets, daily range): BP systolic 99–143; BP diastolic 47–71
[2017-03-28] MEDS: metroNIDAZOLE-Flagyl 500mg/NS 100 ML IV SCH ×4 (00:09→23:46)
[2017-03-28 02:26] LABS: BASOPHILS % (AUTO) 0 % (0-1); EOSINOPHILS # (AUTO) 0.2 X10'3 (0-0.9); EOSINOPHILS % (AUTO) 1.1 % (0-6); HEMATOCRIT 23.6 % (42.0-52.0); HEMOGLOBIN 7.9 g/dl (14.0-17.9); LYMPHOCYTES # (AUTO) 0.8 X10'3 (1.1-4.8); LYMPHOCYTES % (AUTO) 3.7 % (21-51); MEAN CORPUSCULAR HEMOGLOBIN 32.4 PG (27.0-31.0); MEAN CORPUSCULAR HGB CONC 33.6 % (33.0-36.5); MEAN CORPUSCULAR VOLUME 96.3 FL (78-98); MEAN PLATELET VOLUME 8.6 FL (7.4-10.4); MONOCYTES # (AUTO) 0.8 X10'3 (0-0.9); MONOCYTES % (AUTO) 3.7 % (2-12); NEUTROPHILS # (AUTO) 19.8 X10'3 (1.8-7.7); NEUTROPHILS % (AUTO) 91.5 % (42-75); PLATELET COUNT 85 X10'3 (140-440); RED BLOOD COUNT 2.45 X10'6 (4.70-6.10); RED CELL DISTRIBUTION WIDTH 23.3 % (11.5-14.5); WHITE BLOOD COUNT 21.6 X10'3 (4.5-11.0)
[2017-03-28 02:46] LABS: ALANINE AMINOTRANSFERASE 41 U/L (12-78); ALBUMIN/GLOBULIN RATIO 0.3 (1.1-1.5); ALKALINE PHOSPHATASE 109 IU/L (46-116); ANION GAP 10 (8-16); ASPARTATE AMINO TRANSFERASE 29 U/L (10-37); BILIRUBIN,TOTAL 1.6 MG/DL (0.1-1.0); BLOOD UREA NITROGEN 38 MG/DL (7-18); CALCIUM 7.7 MG/DL (8.5-10.1); CHLORIDE 118 MMOL/L (99-107); CREATININE 2.38 MG/DL (0.60-1.10); GLUCOSE 104 MG/DL (70-104); MAGNESIUM 1.5 MG/DL (1.5-2.4); PHOSPHORUS 4.4 MG/DL (2.3-4.5); POTASSIUM 3.7 MMOL/L (3.5-5.1); SODIUM 145 MMOL/L (135-145); TOTAL CARBON DIOXIDE 16.8 MMOL/L (24-32); TOTAL PROTEIN 4.9 G/DL (6.4-8.2); eGFR 28 ML/MIN
[2017-03-28 05:37] LABS: ANISOCYTOSIS 3+; HYPOCHROMASIA 1+; PLATELET ESTIMATE DECREASED; POLYCHROMASIA 1+
[2017-03-28 05:38] LABS: BURR CELLS 2+
[2017-03-28] MEDS: cefepime 1GM/NS ADD-VANTAGE 100 ML IV SCH ×2 (08:23→20:32)
[2017-03-28] MEDS: zinc oxide ointment 30gm tube TP SCH ×2 (08:24→20:00)
[2017-03-28] MEDS: emollient combination-Eucerin 250 ML LOTION TP SCH (08:25)
[2017-03-28] MEDS: gabapentin 300mg capsule PO SCH (08:35)
[2017-03-28] MEDS: rifaximin 550mg tablet PO SCH ×2 (08:35→20:32)
[2017-03-28] MEDS: vitamin D (cholecalciferol) 1,000 unit tablet PO SCH (08:35)
[2017-03-28] MEDS: multivitamins, therapeutics tablet PO SCH (08:35)
[2017-03-28] MEDS: ascorbic acid 500mg tablet PO SCH (08:35)
[2017-03-28] MEDS: potassium Cl oral solution 20 MEQ/15 ML PO SCH ×2 (08:36→20:33)
[2017-03-28] MEDS: Protein Shake (high protein) 240ml (8oz) cup PO SCH ×3 (08:40→16:36)
[2017-03-28] MEDS: zinc sulfate 220mg capsule PO SCH (08:41)
[2017-03-28] MEDS: lactobacillus rhamnosus 10,000 MMU CELLS/CAPSULE PO SCH ×2 (08:41→16:37)
[2017-03-28] MEDS: vancomycin inj 1,250 MG in normal saline 250ml IV soln 250 ML IV SCH (10:44)
[2017-03-29 03:00] VITALS: BP 109/56
[2017-03-29 04:12] LABS: BASOPHILS % (AUTO) 0 % (0-1); EOSINOPHILS # (AUTO) 0.7 X10'3 (0-0.9); EOSINOPHILS % (AUTO) 3.5 % (0-6); HEMATOCRIT 23.5 % (42.0-52.0); HEMOGLOBIN 7.9 g/dl (14.0-17.9); LYMPHOCYTES % (AUTO) 4.9 % (21-51); MEAN CORPUSCULAR HEMOGLOBIN 32.3 PG (27.0-31.0); MEAN CORPUSCULAR HGB CONC 33.5 % (33.0-36.5); MEAN CORPUSCULAR VOLUME 96.3 FL (78-98); MEAN PLATELET VOLUME 8.7 FL (7.4-10.4); MONOCYTES # (AUTO) 0.8 X10'3 (0-0.9); MONOCYTES % (AUTO) 3.9 % (2-12); NEUTROPHILS # (AUTO) 17.1 X10'3 (1.8-7.7); NEUTROPHILS % (AUTO) 87.7 % (42-75); PLATELET COUNT 89 X10'3 (140-440); RED BLOOD COUNT 2.44 X10'6 (4.70-6.10); RED CELL DISTRIBUTION WIDTH 24.1 % (11.5-14.5); WHITE BLOOD COUNT 19.5 X10'3 (4.5-11.0)
[2017-03-29 04:29] LABS: ALANINE AMINOTRANSFERASE 41 U/L (12-78); ALBUMIN/GLOBULIN RATIO 0.2 (1.1-1.5); ALKALINE PHOSPHATASE 142 IU/L (46-116); ANION GAP 11 (8-16); ASPARTATE AMINO TRANSFERASE 48 U/L (10-37); BILIRUBIN,TOTAL 1.2 MG/DL (0.1-1.0); BLOOD UREA NITROGEN 39 MG/DL (7-18); BUN/CREATININE RATIO 16.7 (5.4-32.0); CALCIUM 7.9 MG/DL (8.5-10.1); CHLORIDE 118 MMOL/L (99-107); CREATININE 2.33 MG/DL (0.60-1.10); GLUCOSE 127 MG/DL (70-104); MAGNESIUM 1.8 MG/DL (1.5-2.4); PHOSPHORUS 4.7 MG/DL (2.3-4.5); SODIUM 146 MMOL/L (135-145); TOTAL CARBON DIOXIDE 17.4 MMOL/L (24-32); TOTAL PROTEIN 5.2 G/DL (6.4-8.2); eGFR 29 ML/MIN
[2017-03-29 07:00] VITALS: BP 128/74
[2017-03-29] MEDS: potassium Cl oral solution 20 MEQ/15 ML PO SCH (07:30)
[2017-03-29] MEDS: multivitamins, therapeutics tablet PO SCH (07:30)
[2017-03-29] MEDS: metroNIDAZOLE-Flagyl 500mg/NS 100 ML IV SCH (07:30)
[2017-03-29] MEDS: cefepime 1GM/NS ADD-VANTAGE 100 ML IV SCH (07:30)
[2017-03-29] MEDS: gabapentin 300mg capsule PO SCH (07:30)
[2017-03-29] MEDS: zinc sulfate 220mg capsule PO SCH (07:31)
[2017-03-29] MEDS: rifaximin 550mg tablet PO SCH (07:31)
[2017-03-29] MEDS: ascorbic acid 500mg tablet PO SCH (07:31)
[2017-03-29] MEDS: lactobacillus rhamnosus 10,000 MMU CELLS/CAPSULE PO SCH (07:31)
[2017-03-29] MEDS: vitamin D (cholecalciferol) 1,000 unit tablet PO SCH (07:31)
[2017-03-29] MEDS: emollient combination-Eucerin 250 ML LOTION TP SCH (08:00)
[2017-03-29] MEDS: zinc oxide ointment 30gm tube TP SCH (08:00)
[2017-03-29] MEDS: Protein Shake (high protein) 240ml (8oz) cup PO SCH (08:00)
[2017-03-29] MEDS ORDERED: furosemide 40mg/4ml inj IV SCH (09:40)
[2017-03-29] MEDS: vancomycin inj 1,250 MG in normal saline 250ml IV soln 250 ML IV SCH (09:57)
[2017-03-29 11:00] VITALS: BP 131/69
[2017-03-31] MEDS ORDERED: VANCOMYCIN LEVEL IV ONE (09:30)
== END 2017-03-29 14:10 | DRG 853 ==
LOC: ER 10:57 → ED HOLD 15:30 → PCU 3S 17:18 → CICU 2S 03-23 13:08 → PCU 3S 03-28 12:20
PROVIDERS: ADMIT Internal Medicine; ATTEND Family Medicine
PROC: 30233N1 Transfusion of Nonautologous Red Blood Cells into Peripheral Vein, Percutaneous Approach (ICD-10-PCS; 2017-03-19)
PROC: 0DB58ZX Excision of Esophagus, Via Natural or Artificial Opening Endoscopic, Diagnostic (ICD-10-PCS; 2017-03-19)
PROC: 30233K1 Transfusion of Nonautologous Frozen Plasma into Peripheral Vein, Percutaneous Approach (ICD-10-PCS; 2017-03-19)
PROC: 0DB68ZX Excision of Stomach, Via Natural or Artificial Opening Endoscopic, Diagnostic (ICD-10-PCS; 2017-03-19)
PROC: 02HV33Z Insertion of Infusion Device into Superior Vena Cava, Percutaneous Approach (ICD-10-PCS; 2017-03-20)
PROC: 0Y6C0Z3 Detachment at Right Upper Leg, Low, Open Approach (ICD-10-PCS; principal; 2017-03-21 12:21)
PROC: 3E0G8GC Introduction of Other Therapeutic Substance into Upper GI, Via Natural or Artificial Opening Endoscopic (ICD-10-PCS; 2017-03-23)
PROC: 0W3P8ZZ Control Bleeding in Gastrointestinal Tract, Via Natural or Artificial Opening Endoscopic (ICD-10-PCS; 2017-03-23)
PROC: 30233R1 Transfusion of Nonautologous Platelets into Peripheral Vein, Percutaneous Approach (ICD-10-PCS; 2017-03-23)
DX: A41.1 Sepsis due to other specified staphylococcus (principal); N17.0 Acute kidney failure with tubular necrosis; J69.0 Pneumonitis due to inhalation of food and vomit; E43 Unspecified severe protein-calorie malnutrition; I96 Gangrene, not elsewhere classified; D62 Acute posthemorrhagic anemia; E87.0 Hyperosmolality and hypernatremia; G93.89 Other specified disorders of brain; E83.42 Hypomagnesemia; K92.1 Melena; I69.354 Hemiplegia and hemiparesis following cerebral infarction affecting left non-dominant side; L03.115 Cellulitis of right lower limb; N39.0 Urinary tract infection, site not specified; K72.90 Hepatic failure, unspecified without coma; R65.20 Severe sepsis without septic shock; K26.9 Duodenal ulcer, unspecified as acute or chronic, without hemorrhage or perforation; K70.30 Alcoholic cirrhosis of liver without ascites; E86.0 Dehydration; I25.10 Atherosclerotic heart disease of native coronary artery without angina pectoris; I48.91 Unspecified atrial fibrillation; K44.9 Diaphragmatic hernia without obstruction or gangrene; K57.90 Diverticulosis of intestine, part unspecified, without perforation or abscess without bleeding; R13.10 Dysphagia, unspecified; M19.90 Unspecified osteoarthritis, unspecified site; F10.20 Alcohol dependence, uncomplicated; I08.3 Combined rheumatic disorders of mitral, aortic and tricuspid valves; E87.6 Hypokalemia; N18.3 Chronic kidney disease, stage 3 (moderate); B96.4 Proteus (mirabilis) (morganii) as the cause of diseases classified elsewhere; L89.899 Pressure ulcer of other site, unspecified stage; Z79.899 Other long term (current) drug therapy; Z79.02 Long term (current) use of antithrombotics/antiplatelets; Z79.2 Long term (current) use of antibiotics; Z99.3 Dependence on wheelchair; Z68.25 Body mass index [BMI] 25.0-25.9, adult
CPT/HCPCS: 36415; 36600; 43239; 70450; 71010; 71045; 74000; 80048; 80053; 80202; 80305; 80320; 81001; 82140; 82272; 82550; 82570; 82803; 82948; 83605; 83735; 83935; 84100; 84132; 84134; 84145; 84156; 84300; 84484; 85018; 85025; 85027; 85384; 85610; 85730; 86803; 86885; 86900; 86901; 86920; 87040; 87070; 87077; 87088; 87186; 88305; 88307; 88312; 88313; 88342; 92616; 93005; 93306; 94640; 94667; 94760; 96365; 96367; 97110; 97161; 97530; 99291; A4620; A4649; A6209; A6212; A6213; A6222; A6223; A6243; A6251; A6253; A6258; A6446; A6449; A7000; C1751; C1758; C9113; G0500; J0171; J0360; J0692; J0696; J0885; J1644; J1940; J2250; J2270; J2543; J2704; J2710; J3010; J3370; J3475; J3480; J3490; J7030; J7060; J7070; J7120; P9016; P9035; P9047; P9059; Q0163

== ENCOUNTER 2017-05-17 09:22 | Day surgery (SDC) | payer MEDICARE, MEDICAID ==
[2017-05-17] MEDS ORDERED: FURO80TA3 PO (14:46)
[2017-05-17] MEDS ORDERED: POLY17PO10 PO (14:46)
[2017-05-17] MEDS ORDERED: HYDR-3965 PO (14:48)
[2017-05-17] MEDS ORDERED: POTA20PA3 (14:49)
[2017-05-17] MEDS ORDERED: LACT10SO PO (14:50)
== END 2017-05-17 12:23 | disposition home or self-care (01) ==
LOC: WOUND CARE 09:22
PROVIDERS: ATTEND Surgery
DX: T87.81 Dehiscence of amputation stump (principal); E11.622 Type 2 diabetes mellitus with other skin ulcer; L89.899 Pressure ulcer of other site, unspecified stage; L98.491 Non-pressure chronic ulcer of skin of other sites limited to breakdown of skin; E11.621 Type 2 diabetes mellitus with foot ulcer; L89.629 Pressure ulcer of left heel, unspecified stage; L97.421 Non-pressure chronic ulcer of left heel and midfoot limited to breakdown of skin; L97.521 Non-pressure chronic ulcer of other part of left foot limited to breakdown of skin; I77.1 Stricture of artery; I48.2 Chronic atrial fibrillation; I25.10 Atherosclerotic heart disease of native coronary artery without angina pectoris; J44.9 Chronic obstructive pulmonary disease, unspecified; K21.9 Gastro-esophageal reflux disease without esophagitis; E11.22 Type 2 diabetes mellitus with diabetic chronic kidney disease; I13.0 Hypertensive heart and chronic kidney disease with heart failure and stage 1 through stage 4 chronic kidney disease, or unspecified chronic kidney disease; N18.3 Chronic kidney disease, stage 3 (moderate); I50.9 Heart failure, unspecified; E66.9 Obesity, unspecified; E11.69 Type 2 diabetes mellitus with other specified complication; M86.671 Other chronic osteomyelitis, right ankle and foot; M86.661 Other chronic osteomyelitis, right tibia and fibula; E11.42 Type 2 diabetes mellitus with diabetic polyneuropathy; E11.51 Type 2 diabetes mellitus with diabetic peripheral angiopathy without gangrene; M19.90 Unspecified osteoarthritis, unspecified site; H54.8 Legal blindness, as defined in USA; F17.210 Nicotine dependence, cigarettes, uncomplicated; Z68.27 Body mass index [BMI] 27.0-27.9, adult; Z79.01 Long term (current) use of anticoagulants; Z79.82 Long term (current) use of aspirin; Z79.899 Other long term (current) drug therapy; Z86.73 Personal history of transient ischemic attack (TIA), and cerebral infarction without residual deficits; Y83.5 Amputation of limb(s) as the cause of abnormal reaction of the patient, or of later complication, without mention of misadventure at the time of the procedure
CPT/HCPCS: 97597; A6206; A6213; A6446

== ENCOUNTER 2017-05-24 10:07 | Day surgery (SDC) | payer MEDICARE, MEDICAID ==
[~2017-05-24 10:07] MED LIST changes: -APIX5TAB3 PO; -ASPI-41 PO; -CILO100T PO; -DOXY-200 PO; +FURO80TA3 PO; +HYDR-3965 PO; +LACT10SO PO; -LACT10SO6 PO; -LEVO500T89 PO; -OMEP20CA10 PO; +POLY17PO10 PO; +POTA20PA3; -PROP10TA10 PO; -SPIR25TA3 PO; -ZIN220C PO
== END 2017-05-24 12:17 | disposition home or self-care (01) ==
LOC: WOUND CARE 10:07
PROVIDERS: ATTEND Surgery
DX: T87.81 Dehiscence of amputation stump (principal); E11.622 Type 2 diabetes mellitus with other skin ulcer; L98.491 Non-pressure chronic ulcer of skin of other sites limited to breakdown of skin; L97.811 Non-pressure chronic ulcer of other part of right lower leg limited to breakdown of skin; E11.621 Type 2 diabetes mellitus with foot ulcer; L97.421 Non-pressure chronic ulcer of left heel and midfoot limited to breakdown of skin; L89.629 Pressure ulcer of left heel, unspecified stage; L89.214 Pressure ulcer of right hip, stage 4; I77.1 Stricture of artery; I48.2 Chronic atrial fibrillation; I25.10 Atherosclerotic heart disease of native coronary artery without angina pectoris; J44.9 Chronic obstructive pulmonary disease, unspecified; K21.9 Gastro-esophageal reflux disease without esophagitis; E11.22 Type 2 diabetes mellitus with diabetic chronic kidney disease; I13.0 Hypertensive heart and chronic kidney disease with heart failure and stage 1 through stage 4 chronic kidney disease, or unspecified chronic kidney disease; N18.3 Chronic kidney disease, stage 3 (moderate); I50.9 Heart failure, unspecified; E66.9 Obesity, unspecified; E11.69 Type 2 diabetes mellitus with other specified complication; M86.671 Other chronic osteomyelitis, right ankle and foot; M86.661 Other chronic osteomyelitis, right tibia and fibula; E11.42 Type 2 diabetes mellitus with diabetic polyneuropathy; E11.51 Type 2 diabetes mellitus with diabetic peripheral angiopathy without gangrene; M19.90 Unspecified osteoarthritis, unspecified site; H54.8 Legal blindness, as defined in USA; F17.210 Nicotine dependence, cigarettes, uncomplicated; Z68.27 Body mass index [BMI] 27.0-27.9, adult; Z79.01 Long term (current) use of anticoagulants; Z79.82 Long term (current) use of aspirin; Z79.899 Other long term (current) drug therapy; Z86.73 Personal history of transient ischemic attack (TIA), and cerebral infarction without residual deficits; Y83.5 Amputation of limb(s) as the cause of abnormal reaction of the patient, or of later complication, without mention of misadventure at the time of the procedure
CPT/HCPCS: 11042; 97597; 97605; A6021; A6209; A6212; A6222; A6243

== ENCOUNTER 2017-05-31 09:27 | Day surgery (SDC) | payer MEDICARE, MEDICAID ==
[2017-05-31] MEDS ORDERED: LIDOcaine 2% 5ml jelly ONE (10:09)
== END 2017-05-31 12:28 | disposition home or self-care (01) ==
LOC: WOUND CARE 09:27
PROVIDERS: ATTEND Surgery
DX: T87.81 Dehiscence of amputation stump (principal); E11.622 Type 2 diabetes mellitus with other skin ulcer; L98.491 Non-pressure chronic ulcer of skin of other sites limited to breakdown of skin; L97.811 Non-pressure chronic ulcer of other part of right lower leg limited to breakdown of skin; E11.621 Type 2 diabetes mellitus with foot ulcer; L97.421 Non-pressure chronic ulcer of left heel and midfoot limited to breakdown of skin; L89.629 Pressure ulcer of left heel, unspecified stage; L89.214 Pressure ulcer of right hip, stage 4; I77.1 Stricture of artery; I48.2 Chronic atrial fibrillation; I25.10 Atherosclerotic heart disease of native coronary artery without angina pectoris; J44.9 Chronic obstructive pulmonary disease, unspecified; K21.9 Gastro-esophageal reflux disease without esophagitis; E11.22 Type 2 diabetes mellitus with diabetic chronic kidney disease; I13.0 Hypertensive heart and chronic kidney disease with heart failure and stage 1 through stage 4 chronic kidney disease, or unspecified chronic kidney disease; N18.3 Chronic kidney disease, stage 3 (moderate); I50.9 Heart failure, unspecified; E66.9 Obesity, unspecified; E11.69 Type 2 diabetes mellitus with other specified complication; M86.671 Other chronic osteomyelitis, right ankle and foot; M86.661 Other chronic osteomyelitis, right tibia and fibula; E11.42 Type 2 diabetes mellitus with diabetic polyneuropathy; E11.51 Type 2 diabetes mellitus with diabetic peripheral angiopathy without gangrene; M19.90 Unspecified osteoarthritis, unspecified site; H54.8 Legal blindness, as defined in USA; F17.210 Nicotine dependence, cigarettes, uncomplicated; Z68.27 Body mass index [BMI] 27.0-27.9, adult; Z79.01 Long term (current) use of anticoagulants; Z79.82 Long term (current) use of aspirin; Z79.899 Other long term (current) drug therapy; Z86.73 Personal history of transient ischemic attack (TIA), and cerebral infarction without residual deficits; Y83.5 Amputation of limb(s) as the cause of abnormal reaction of the patient, or of later complication, without mention of misadventure at the time of the procedure
CPT/HCPCS: 11042; 97605; A6021; A6212; A6446

== ENCOUNTER 2017-06-07 09:09 | Day surgery (SDC) | payer MEDICARE, MEDICAID ==
[2017-06-07] MEDS ORDERED: LIDOcaine 2% 5ml jelly ONE (10:01)
== END 2017-06-07 11:27 | disposition home or self-care (01) ==
LOC: WOUND CARE 09:09
PROVIDERS: ATTEND Surgery
DX: T87.81 Dehiscence of amputation stump (principal); E11.622 Type 2 diabetes mellitus with other skin ulcer; L98.491 Non-pressure chronic ulcer of skin of other sites limited to breakdown of skin; L97.811 Non-pressure chronic ulcer of other part of right lower leg limited to breakdown of skin; E11.621 Type 2 diabetes mellitus with foot ulcer; L97.421 Non-pressure chronic ulcer of left heel and midfoot limited to breakdown of skin; L89.629 Pressure ulcer of left heel, unspecified stage; E11.42 Type 2 diabetes mellitus with diabetic polyneuropathy; E11.51 Type 2 diabetes mellitus with diabetic peripheral angiopathy without gangrene; I77.1 Stricture of artery; I48.2 Chronic atrial fibrillation; I25.10 Atherosclerotic heart disease of native coronary artery without angina pectoris; J44.9 Chronic obstructive pulmonary disease, unspecified; K21.9 Gastro-esophageal reflux disease without esophagitis; E11.22 Type 2 diabetes mellitus with diabetic chronic kidney disease; I13.0 Hypertensive heart and chronic kidney disease with heart failure and stage 1 through stage 4 chronic kidney disease, or unspecified chronic kidney disease; I50.9 Heart failure, unspecified; E66.9 Obesity, unspecified; E11.69 Type 2 diabetes mellitus with other specified complication; M86.671 Other chronic osteomyelitis, right ankle and foot; M86.661 Other chronic osteomyelitis, right tibia and fibula; M19.90 Unspecified osteoarthritis, unspecified site; H54.8 Legal blindness, as defined in USA; F17.210 Nicotine dependence, cigarettes, uncomplicated; Z68.27 Body mass index [BMI] 27.0-27.9, adult; Z79.01 Long term (current) use of anticoagulants; Z79.82 Long term (current) use of aspirin; Z79.899 Other long term (current) drug therapy; Z86.73 Personal history of transient ischemic attack (TIA), and cerebral infarction without residual deficits; Y83.5 Amputation of limb(s) as the cause of abnormal reaction of the patient, or of later complication, without mention of misadventure at the time of the procedure
CPT/HCPCS: 11042; 11043; 97597; A6021; A6206; A6209; A6243